=== PATIENT | female | born 1995 | race Caucasian/White ===

== ENCOUNTER 2018-09-21 22:07 | Emergency (ER) | payer OTHER, SELFPAY ==
[2018-09-21 22:09] VITALS: BP 124/83; PULSE 112; RESP 17; TEMP 37.8; O2SAT 99; BMI 22.8
[2018-09-21] MEDS: Ondansetron 4 MG/2 ML Vial IV (22:46)
[2018-09-21] MEDS: 0.9% Normal Saline 1,000 ML 999 ML IV (22:46)
[2018-09-21] MEDS: Ketorolac 30 MG/ML Syringe IV (22:48)
[2018-09-22] MEDS: DiphenhydrAMINE 50 MG/ML Syringe 25 MG IV (00:07)
[2018-09-22] MEDS: proCHLORPERazine 10 MG/2 ML Vial IV (00:08)
--- NOTE | 2018-09-22 00:38 | ED.VISSUMM ---
- ER Visit Summary Date of Service: 09/22/18 Chief Complaint: Flulike illness History of Present Illness: The patient is a 23 F who presents with a flulike illness. He became ill yesterday. She has had a fever of 101.7. She complains of muscle aches joint aches headaches and cough. She complains of nausea. No congestion rhinorrhea or sore throat. No chest pain or difficulty breathing. No sick contacts. Physical Examination: Heart rate 112 temperature 100.0 vitals otherwise normal Right tympanic membrane is normal there is a left-sided cerumen impaction Neck is supple no meningismus negative Kernig's and Brudzinski's signs sign oropharynx is clear Heart is regular rhythm slightly tachycardic Lungs are clear Abdomen soft and nontender Alert, no focal or lateralizing neurological deficits Skin warm and dry Test Results: Not indicated Emergency Department Course and Treatment: I suspect that the patient has influenza. We discussed that given that she is young and otherwise healthy Tamiflu would provide little benefit with significant side effects. I would not recommend Tamiflu in case. She was treated symptomatically with IV fluids Toradol and Zofran. On reevaluation she is still complaining of a headache. She was given Compazine and Benadryl with complete resolution of headache. She states that she feels good. She was advised on supportive care. She understands return for new or worsening symptoms. She was discharged. Treatment Plan: [] Disposition: Discharge Impression: Acute febrile illness, suspect influenza This note was generated with [employer] dictation software. It may contain incorrect words, spelling, and punctuation that were not noted in review of the chart prior to signing ED Disposition - Plan for ED Patient: Chief Complaint: Cold Sx Referrals: [facility] Doctor,Out of [Primary Care Provider] -
--- NOTE | 2018-09-22 00:41 | ED.DCSUM_ITS ---
- ER Visit Summary Date of Service: 09/22/18 Chief Complaint: Flulike illness History of Present Illness: The patient is a 23 F who presents with a flulike illness. He became ill yesterday. She has had a fever of 101.7. She complains of muscle aches joint aches headaches and cough. She complains of nausea. No congestion rhinorrhea or sore throat. No chest pain or difficulty breathing. No sick contacts. Physical Examination: Heart rate 112 temperature 100.0 vitals otherwise normal Right tympanic membrane is normal there is a left-sided cerumen impaction Neck is supple no meningismus negative Kernig's and Brudzinski's signs sign oropharynx is clear Heart is regular rhythm slightly tachycardic Lungs are clear Abdomen soft and nontender Alert, no focal or lateralizing neurological deficits Skin warm and dry Test Results: Not indicated Emergency Department Course and Treatment: I suspect that the patient has influenza. We discussed that given that she is young and otherwise healthy Tamiflu would provide little benefit with significant side effects. I would not recommend Tamiflu in case. She was treated symptomatically with IV fluids Toradol and Zofran. On reevaluation she is still complaining of a headache. She was given Compazine and Benadryl with complete resolution of headache. She states that she feels good. She was advised on supportive care. She understands return for new or worsening symptoms. She was discharged. Treatment Plan: [] Disposition: Discharge Impression: Acute febrile illness, suspect influenza This note was generated with [employer] dictation software. It may contain incorrect words, spelling, and punctuation that were not noted in review of the chart prior to signing ED Disposition - Plan for ED Patient: Chief Complaint: Cold Sx Referrals: [facility] Doctor,Out of [Primary Care Provider] -
--- NOTE | 2018-09-22 00:41 | ED.DEP ---
ED Disposition - Plan for ED Patient: Chief Complaint: Cold Sx Instructions: ED Flu Referrals: [facility] Doctor,Out of [Primary Care Provider] -
[2018-09-22 00:52] VITALS: PULSE 95; RESP 16; O2SAT 100
--- NOTE | 2018-09-22 00:53 | ED.RN ---
THIS NURSE REVIEWED D/C INSTRUCTIONS WITH PT AND MOTHER. PT VERBALIZED UNDERSTANDING OF INSTRUCTIONS. IV D/C. IV CATHETER INTACT. PT TOLERATED WELL. PT DENIES FURTHER NEEDS OR QUESTIONS AT THIS TIME. PT AMBULATES FROM ROOM ON OWN WITHOUT ASSISTANCE FROM STAFF
== END 2018-09-22 00:54 | disposition home or self-care (01) ==
LOC: ED 22:36
PROVIDERS: Emergency Provider Emergency Medicine
DX: R50.9 Fever, unspecified (principal); R51 Headache; R05 Cough; R11.0 Nausea; M79.10 Myalgia, unspecified site; H61.22 Impacted cerumen, left ear
CPT/HCPCS: 96361; 96374; 96375; 99283; J7030; A4216; J2405

== ENCOUNTER → 2019-12-23 16:44 | Outpatient (CLI) | payer OTHER, SELFPAY ==
[2019-12-23 15:58] VITALS: BMI 22.8
[2019-12-23 18:55] LABS: Chlamydia Trachomatis by PCR Negative (Negative); Neisserai gonorrhoeae by PCR Negative (Negative); Probe Check PASS; Sample Adequacy Control PASS; Specimen Processing Control PASS
== END ==
PROVIDERS: Referring Provider Obstetrics & Gynecology; Visit Provider Obstetrics & Gynecology
DX: Z34.90 Encounter for supervision of normal pregnancy, unspecified, unspecified trimester (principal)
CPT/HCPCS: 36415; 86850; 86900; 86901; 87491; 87591

== ENCOUNTER → 2019-12-26 09:53 | Outpatient (CLI) | payer OTHER, SELFPAY ==
[2019-12-26 09:48] VITALS: BMI 22.8
[2019-12-26 10:24] LABS: Absolute Neutrophil Count 8.9 X10^3/uL (2.0-7.7); Basophil# 0.06 X10^3/uL; Basophil% 0.5 % (0-1); Eosinophil# 0.08 X10^3/uL; Eosinophils% 0.7 % (0-5); Hematocrit 39.6 % (37-47); Hemoglobin 13.5 g/dL (12.0-15.0); Lymphocyte % 18.4 % (19-41); Mean Corp Hgb Conc 34.1 g/dL (32-36); Mean Corpuscular Hgb 31.3 pg (27.0-32.0); Mean Corpuscular Volume 91.7 fL (81-99); Mean Platelet Vol. 8.9 fl (6.2-12.0); Monocyte# 0.64 X10^3/uL; Monocyte% 5.4 % (0-10); NRBC Flagged by Analyzer 0 % (0-5); Neutrophil # 8.88 X10^3/uL (2.7-7.7); Neutrophil % 74.4 % (47-70); Platelet Count 315 K/mm3 (150-450); RBC Distribution Width CV 12.5 % (11.6-14.6); RBC Distribution Width SD 41.6 fl (35.1-43.9); Red Blood Count 4.32 M/mm3 (4.2-5.4); White Blood Count 11.9 K/mm3 (4.4-11.0)
[2019-12-26 11:45] LABS: HIV - WCH Non-Reactive (Nonreactive); Hepatitis B Surface Antigen Non-Reactive (Nonreactive); Hepatitis C Antibody Non-Reactive (Nonreactive); Rubella IgG 25.7 IU/mL
[2019-12-29 03:16] LABS: Rapid Plasmin Reagin (RPR) NONREACTIVE (NONREACTIVE)
== END ==
PROVIDERS: Nurse Practitioner Women's Health; Referring Provider Obstetrics & Gynecology; Visit Provider Obstetrics & Gynecology
DX: Z34.90 Encounter for supervision of normal pregnancy, unspecified, unspecified trimester (principal)
CPT/HCPCS: 36415; 85025; 86592; 86703; 86762; 86803; 86850; 87086; 87340

== ENCOUNTER → 2020-02-17 16:40 | Outpatient (CLI) | payer OTHER, SELFPAY ==
[2020-02-17 13:16] VITALS: BMI 22.8
[2020-02-17 17:13] LABS: Amphetamine Urine VISTA NEGATIVE (<1000 ng/mL); Barbiturate Urine VISTA NEGATIVE (< 200 ng/mL); Benzodiazepine Urine VISTA NEGATIVE (< 200 ng/mL); Cocaine Urine VISTA NEGATIVE (< 300 ng/mL); Ecstacy Urine VISTA NEGATIVE (< 500 ng/mL); Methadone Urine VISTA NEGATIVE (< 300 ng/mL); PCP Urine VISTA NEGATIVE (< 25 ng/mL); THC Urine VISTA NEGATIVE (< 50 ng/mL); Vista UDS pH Range 6
== END ==
PROVIDERS: Nurse Practitioner Women's Health; Referring Provider Obstetrics & Gynecology; Visit Provider Obstetrics & Gynecology
DX: Z34.90 Encounter for supervision of normal pregnancy, unspecified, unspecified trimester (principal)
CPT/HCPCS: 80307

== ENCOUNTER → 2020-05-11 08:37 | Outpatient (CLI) | payer OTHER, SELFPAY ==
[2020-04-13 09:28] VITALS: BMI 22.8
[2020-05-11 09:11] LABS: Absolute Lymphocyte Count 2.06 X10^3/uL (0.83-4.51); Absolute Neutrophil Count 7.4 X10^3/uL (2.0-7.7); Basophil# 0.06 X10^3/uL; Basophil% 0.6 % (0-1); Eosinophil# 0.08 X10^3/uL; Eosinophils% 0.8 % (0-5); Hematocrit 36.4 % (37-47); Hemoglobin 12.3 g/dL (12.0-15.0); Lymphocyte # 2.06 X10^3/ul (4.0); Lymphocyte % 19.6 % (19-41); Mean Corp Hgb Conc 33.8 g/dL (32-36); Mean Corpuscular Hgb 33.7 pg (27.0-32.0); Mean Corpuscular Volume 99.7 fL (81-99); Mean Platelet Vol. 8.9 fl (6.2-12.0); Monocyte# 0.74 X10^3/uL; Monocyte% 7.1 % (0-10); NRBC Flagged by Analyzer 0 % (0-5); Neutrophil # 7.39 X10^3/uL (2.7-7.7); Neutrophil % 70.4 % (47-70); Platelet Count 199 K/mm3 (150-450); RBC Distribution Width CV 12.7 % (11.6-14.6); RBC Distribution Width SD 46.2 fl (35.1-43.9); Red Blood Count 3.65 M/mm3 (4.2-5.4); White Blood Count 10.5 K/mm3 (4.4-11.0)
[2020-05-11 09:26] LABS: Glucose Challenge Gest 1H 50g 65 mg/dL (70-140)
== END ==
PROVIDERS: Referring Provider Obstetrics & Gynecology; Visit Provider Obstetrics & Gynecology
DX: Z34.92 Encounter for supervision of normal pregnancy, unspecified, second trimester (principal); Z3A.26 26 weeks gestation of pregnancy
CPT/HCPCS: 36415; 82950; 85025

== ENCOUNTER → 2020-06-21 08:08 | Outpatient (CLI) | payer OTHER, SELFPAY ==
[2020-06-07 10:07] VITALS: BMI 22.8
--- NOTE | 2020-06-21 08:10 | US_ITS ---
STUDY: SECOND AND THIRD TRIMESTER OBSTETRICAL ULTRASOUND REASON FOR EXAM: Female, 25 years old GROWTH LMP: Unknown. TECHNIQUE: Transabdominal TECHNICAL QUALITY: Adequate. PRIOR ULTRASOUND: None. FINDINGS: There is a single intrauterine fetus. The fetus is in a cephalic presentation. There is demonstrated cardiac activity with a heart rate of 134 bpm. There is a normal amniotic fluid volume. The largest amniotic fluid pocket measures 7.4 cm. The amniotic fluid index RADHA) is 18.1 cm. The placenta is anterior in location and is not low lying. There are Grade 2 placental changes. The cervix measures 2.9 cm in length. The bilateral adnexal regions are normal. BIOMETRY: BPD: 9.0 cm: 36 weeks, 6 days HC: 32.9 cm: 35 weeks, 6 days AC: 31.8 cm: 35 weeks, 5 days FL: 6.8 cm: 35 weeks, 0 days age by current US: 35 weeks, 6 days. BERNA by current US: 07/20/2020. Estimated weight: 2726 grams, +/- 398 grams, 51 %. Age by LMP: 35 weeks, 4 days. BERNA by LMP: 07/22/2020. Detailed anatomy study not performed but there is evidence of a nuchal cord. US/OB Limited With Biometrics IMPRESSION: Single live intrauterine at 35 weeks, 6 days by current ultrasound with BERNA of 07/20/2020. Heart rate of 136 bpm. There is a nuchal cord noted with one complete wrap. Electronically Signed: Fransisco Valdez MD at 11:53 EDT , Service support ,
== END ==
PROVIDERS: Referring Provider Obstetrics & Gynecology; Visit Provider Obstetrics & Gynecology
DX: Z34.00 Encounter for supervision of normal first pregnancy, unspecified trimester (principal)
CPT/HCPCS: 76816

== ENCOUNTER → 2020-06-28 11:01 | Outpatient (CLI) | payer OTHER, SELFPAY ==
[2020-06-28 10:06] VITALS: BMI 22.8
== END ==
PROVIDERS: Referring Provider Obstetrics & Gynecology; Visit Provider Obstetrics & Gynecology
DX: Z34.90 Encounter for supervision of normal pregnancy, unspecified, unspecified trimester (principal)
CPT/HCPCS: 87081

== ENCOUNTER → 2020-07-15 10:07 | Outpatient (CLI) | payer OTHER, SELFPAY ==
[2020-07-12 10:08] VITALS: BMI 22.8
== END ==
PROVIDERS: Referring Provider Obstetrics & Gynecology; Visit Provider Obstetrics & Gynecology
DX: Z11.59 Encounter for screening for other viral diseases (principal)
CPT/HCPCS: 87635; 94799; C9803; U0003

== ENCOUNTER 2020-07-19 02:37 | Inpatient (IN) | payer OTHER, SELFPAY ==
[2020-07-12 10:08] VITALS: BMI 22.8
[2020-07-19] VITALS (36 sets, daily range): BP systolic 93–123; BP diastolic 55–76; PULSE 71–122; RESP 14–16; TEMP 36–36.6; O2SAT 94–99; BMI 25.4
[2020-07-19] MEDS: Lactated Ringers 1,000 ML 50 ML IV (03:00)
[2020-07-19] MEDS: Lactated Ringers 500 ML 999 ML IV ×3 (03:05→06:25)
[2020-07-19 03:11] LABS: Absolute Lymphocyte Count 2.32 X10^3/uL (0.83-4.51); Absolute Neutrophil Count 11.2 X10^3/uL (2.0-7.7); Basophil# 0.08 X10^3/uL; Basophil% 0.5 % (0-1); Eosinophil# 0.19 X10^3/uL; Eosinophils% 1.3 % (0-5); Hematocrit 40.3 % (37-47); Hemoglobin 13.9 g/dL (12.0-15.0); Lymphocyte # 2.32 X10^3/ul (4.0); Lymphocyte % 15.3 % (19-41); Mean Corp Hgb Conc 34.5 g/dL (32-36); Mean Corpuscular Hgb 33.9 pg (27.0-32.0); Mean Corpuscular Volume 98.3 fL (81-99); Mean Platelet Vol. 9.1 fl (6.2-12.0); Monocyte# 1.09 X10^3/uL; Monocyte% 7.2 % (0-10); NRBC Flagged by Analyzer 0 % (0-5); Neutrophil # 11.22 X10^3/uL (2.7-7.7); Neutrophil % 74.1 % (47-70); Platelet Count 198 K/mm3 (150-450); RBC Distribution Width CV 12.4 % (11.6-14.6); RBC Distribution Width SD 44.5 fl (35.1-43.9); White Blood Count 15.1 K/mm3 (4.4-11.0)
[2020-07-19] MEDS: fentaNYL-bupivacaine (epidural) 100 ML BAG EPIDURAL (04:02)
--- NOTE | 2020-07-19 07:57 | PCM.HP.OB ---
- Problem List (1) Active labor at term Status: Acute (2) Synechia, anterior Status: Acute Qualifiers: Comment: attached at both ends, fetus freely moving. No vascularity. 36 week us normal (3) Supervision of normal first Status: Acute Qualifiers: Comment: PRR BERNA 07/22/20 gender surprise Franklyn (4) Status: Acute Qualifiers: Comment: Declines genetic, carrier, and ntd screening. anatomy reviewed. COVID negative History Date of Admission: 07/19/20 Final BERNA: 07/22/20 Gestational age: 39 Weeks and 4 Days History of this : This is a 25 year-old, G 1P0 at 39 weeks gestational age presents in active labor. Surgical History: Surgical History (Last Reviewed 07/12/20 @ 10:08 by Disha Priest) S/P ACL surgery Z98.890 Allergies sulfamethoxazole [From Bactrim] Adverse Reaction (Verified 07/12/20 10:07) Nausea/Vom/Diarrhea trimethoprim [From Bactrim] Adverse Reaction (Verified 07/12/20 10:07) Nausea/Vom/Diarrhea Home Medications: Home Medications vitamin#30 30 mg iron-10 mg iron-folic acid 1 mg-omg3 capsule cap PO 12/23/19 famotidine 20 mg tablet 20 mg PO DAILY #30 tab 05/11/20 Smoking Status: Never smoker Number of Fetus(es): 1 NST - FHR Rate Baby A Baseline: 130 Variability:: Moderate Accelerations:: 15 x 15 Decelerations:: None NST Reactive:: Yes FHR Category:: Category I Uterine Activity:: regular History Past Pregnancies: Past Pregnancies Delivery Date Name GA/ Weeks Outcome Route Wt Infant Sex Labor Length Anesthesia Delivery Location Provider FOB Labs: Mom's Problem List Problem Status Onset Code Active labor at term Acute Mom's Labs & Results 07/19/20 07/19/20 03:00 03:00 WBC 15.1 H RBC 4.10 L Hgb 13.9 Hct 40.3 MCV 98.3 MCH 33.9 H MCHC 34.5 RDW Std Deviation 44.5 H RDW Coeff of Luma 12.4 Plt Count 198 MPV 9.1 Immature Gran % (Auto) 1.600 H Neut % (Auto) 74.1 H Lymph % (Auto) 15.3 L [place] % (Auto) 7.2 Eos % (Auto) 1.3 Baso % (Auto) 0.5 Absolute Neuts (auto) 11.2 H Absolute Lymphs (auto) 2.32 Nucleated RBC % 0 Blood Type A POSITIVE Antibody Screen NEGATIVE Course Did the patient receive Yes care? Labs Blood Type: A RH: POSITIVE RPR/VDRL/Syphilis Nonreactive Rubella status Immune HbSAg Negative Date Done: 12/26/19 Chlamydia Negative Gonorrhea Negative HIV/AIDS Non-Reactive Group B Strep: Negative Current Obstetrical History Gestational Diabetes No Incompetent Cervix No Infertility No IUGR No Macrosomia No Hypertension/Pre-eclampsia No Placenta Previa/Abruption No PTL/PROM No Uterine anomaly No Oligohydramnios No Polyhydramnios No Multiple gestation No Past Medical History Asthma No Diabetes No Hypertension No Heart disease No Mitral valve prolapse No Neurologic/Seizure disorder/ No Migraines Kidney disease No Liver disease No Varicosities No Clotting disorders/Hx of DVT No Thyroid Dysfunction No Other medical diseases No Psychiatric disorders No Major trauma No Abnormal PAP smear No Sleep apnea No Mammogram in the last 2 years No Social History Marital Status: Alleged father Franklyn Hx Smoking No Smoking Status Never smoker Expected Delivery Method: Spontaneous Vaginal Review of Systems Constitutional: Denies: Fever, Malaise Eyes: Denies: Blurred vision, Vision Change HEENT: Denies: Head Aches, Visual Changes Cardiovascular: Denies: Chest Pain, Palpitations Respiratory: Denies: Cough, Shortness of Breath, Wheezing Gastrointestinal: Denies: Abdominal Pain, Diarrhea, Nausea, Vomiting Genitourinary: Denies: Dysuria, Hematuria Musculoskeletal: Denies: Joint Pain, Muscle pain Skin: Denies: Lesions, Rash Neurological: Denies: Blurred vision, Focal weakness, Headaches Psychiatric: Denies: Anxiety, Depression Endocrine: Denies: Heat/ Cold Intolerance Hematologic/ Lymphatic: Denies: Easy Bruising, Easy Bleeding Physical Exam Vitals: Vital Signs Temp Pulse BP Pulse Ox 97.0 F L 122 H 100/66 95 07/19/20 07:36 07/19/20 07:20 07/19/20 07:20 07/19/20 06:08 General: Alert, Cooperative, No apparent distress HEENT: Atraumatic, Normocephalic. Negative for: Thyromegaly, Lymphadenopathy Cardiovascular: Regular rate Lungs: Normal air movement Abdomen: Soft, Non Tender, Gravid Neurological: Deep Tendon Reflexes 2+/4 and Symmetrical, Neuro grossly intact. Negative for: Clonus SCREENING TECHNICIAN: Normal external genitalia. Negative for: Vulvar lesions Estimated gestational size: Appropriate for gestational size Presentation: Cephalic Assessment/Plan All Active Problems (Last Reviewed 07/12/20 @ 10:08 by Disha Priest) Active labor at term (Acute) Synechia, anterior (Acute) Supervision of normal first (Acute) (Acute) This is a 25 year-old, at 39 weeks gestational age presents IAL. Patient presents IAL, plan expectant management for , pitocin/AROM PRN if needed. Pain management: Plans epidural. GBS negative. Management of any complications: None I have reviewed the [facility] and made any clinically relevant updates.
[2020-07-19] MEDS: Oxytocin 30 units/NS 500 ml 30 UNITS/500 ML IV.SOLN 334 UNITS IV (08:04)
[2020-07-19] MEDS: Acetaminophen 500 MG Tablet 1000 MG PO ×2 (10:38→19:49)
[2020-07-19] MEDS: Dibucaine 30 GM Tube 1 APPLIC TOPICAL (19:51)
[2020-07-19] MEDS: Naproxen 250 MG Tablet 500 MG PO (22:09)
[2020-07-20 03:36] VITALS: BP 104/65; PULSE 77; RESP 18; TEMP 36.2
[2020-07-20] MEDS: Acetaminophen 500 MG Tablet 1000 MG PO ×2 (04:31→14:52)
--- NOTE | 2020-07-20 05:47 | OP.PCM_ITS ---
Problem List (1) Active labor at term Status: Acute (2) Synechia, anterior Status: Acute Qualifiers: Comment: attached at both ends, fetus freely moving. No vascularity. 36 week us normal (3) Supervision of normal first Status: Acute Qualifiers: Comment: PRR BERNA 07/22/20 gender surprise Franklyn (4) Status: Acute Qualifiers: Comment: Declines genetic, carrier, and ntd screening. anatomy reviewed. COVID negative Vaginal Delivery Maternal Presentation: Active Labor 25-year-old G1, P0 at 39 weeks presents in active labor Amniotic Membrane Rupture Type: Artificial Amniotic Fluid Description: Clear Final BERNA: 07/22/20 Gestational age: 39 Weeks and 5 Days Date of Procedure: 07/19/20 Pre-Operative Diagnosis: ial Post-Operative Diagnosis: same Surgery/ Procedure Performed: Spontaneous Vaginal Delivery Type of Anesthesia: Epidural Description of Procedure: Patient began pushing and delivered the head in the [WINSOME] presentation. The head was delivered atraumatically and a tight nuchal cord and looser loop were noted. The anterior and posterior shoulders delivered without complication spontaneously and only infant was at the level on the umbilicus the cord was clamped and cut followed by the rest of the infant delivering and the was placed on the maternal abdomen. Delayed cord clamping was employed for approximately 60 seconds. Cord was clamped and cut and gentle traction was applied to the cord and the placenta delivered spontaneously immediately following it was noted to be intact with three-vessel cord. The perineum and vagina were inspected and noted to have a first-degree vaginal laceration and a first-degree perineal laceration that was repaired in the usual fashion with 3-0 Vicryl repeat. EBL was 300. Patient and infant tolerated delivery well. Presentation: WINSOME Placental Delivery Description: Spontaneous Placenta Disposition: [facility] Cord Entanglement: Around neck x 2, loose Estimated Blood Loss: 300 A gender: Male Episiotomy Description: None Laceration: Perineal Extension/lac, Vaginal Extension/lac, 1st degree Medications given after delivery: IV Pitocin Complications: None [facility] Codes - Urinary/Genital Urinary/Genital CPT Codes: 82183 Delivery [facility]
--- NOTE | 2020-07-20 07:06 | PCM.PN.OB ---
Patient Problems: Active and Suspected Problems (Last Reviewed 07/12/20 @ 10:08 by Disha Priest) Active labor at term (Acute) Subjective: Patient doing well without complaints. Tolerating PO. Ambulating and voiding without difficulty. passing gas.feeding without difficulty. Denies chest pain, shortness of breath, calf pain/swelling, fevers, chills, lightheadedness. - Physical Exam Vitals/I&O's: Vital Signs Temp Pulse Resp BP Pulse Ox 97.1 F L 77 18 104/65 99 07/20/20 03:36 07/20/20 03:36 07/20/20 03:36 07/20/20 03:36 07/19/20 20:01 Oxygen Delivery Method Room Air Weight: 162 lb 3.2 oz Body Mass Index (BMI) 25.4 Intake and Output for Last 24 Hours 07/18/20 07/19/20 07/20/20 23:59 23:59 23:59 Intake Total 2714.17 / 2714.17 Output Total 2200 / 2200 Balance 514.17 / 514.17 General: Alert, Oriented x3 Current Medications Acetaminophen (Tylenol) 1,000 mg PO Q8H PRN PRN PRN Reason: Pain Score 1-310 Last Admin: 07/20/20 04:31 Dose: 1,000 mg Documented by: Bisacodyl (Dulcolax) 10 mg RECTAL UD PRN PRN Reason: If no BM Dibucaine (Dibucaine) 1 applic TOPICAL TID PRN PRN; Protocol PRN Reason: Discomfort Last Admin: 07/19/20 19:51 Dose: 1 applicatio Documented by: Hydrocortisone (Hytone) 1 applic TOPICAL TID PRN PRN; Protocol PRN Reason: Discomfort Methylergonovine Maleate (Methergine) 0.2 mg IM X1 PRN PRN Reason: Excess bleeding/uterine atony Naproxen (Naprosyn) 500 mg PO Q8H PRN PRN PRN Reason: Pain Score 1-3/10 Last Admin: 07/19/20 22:09 Dose: 500 mg Documented by: Ondansetron HCl (Zofran) 4 mg IV Q4H PRN PRN PRN Reason: Nausea Oxycodone HCl (Oxyir) 5 - 10 mg PO Q4H PRN PRN PRN Reason: Pain Score 4-10/10 Senna/Docusate Sodium (Senokot-S, Dana-Colace) 1 - 2 tablet PO DAILY PRN PRN PRN Reason: Constipation Simethicone (Mylicon) 80 mg PO PCHS PRN PRN Reason: Indigestion/Stomach pain Sodium Chloride () 5 - 15 ml IV UD PRN PRN Reason: SALINE FLUSH Medical Necessity - Tobacco Use Smoking Status: Never smoker Assessment/Plan All Active Problems (Last Reviewed 07/12/20 @ 10:08 by Disha Priest) Active labor at term (Acute) Synechia, anterior (Acute) Supervision of normal first (Acute) (Acute) s/p PPD # 1 1. routine post delivery care 2. breast feeding- support given 3. rh positive 4. rubella immune
--- NOTE | 2020-07-20 07:07 | DCINST_ITS ---
Discharge Diet: No Restrictions Discharge Activity: Return to Normal Activity, May not drive while taking narcotic pain medications., May Shower May resume sexual activity in: 4-6 weeks Call your doctor if your incision/area has: Continuous Slow Oozing, Sudden Increased Bleeding, Increased Pain/ Swelling, Increased Redness, Foul Smelling Discharge Additional Instructions: If you experience any of the following, contact your healthcare provider. * Bleeding that soaks a pad every hour for 2 hours * Fever 100.4 or higher * Unrelieved incision or abdominal pain * Swelling, redness, discharge or bleeding from your incision or episiotomy site * Your incision begins to separate * Problems urinating (including inability to urinate or burning while urinating). * Visual changes * Severe headache * Flu-like symptoms * Pain or redness in one of both of your breasts * Pain, warmth, tenderness or swelling in your legs, especially the calf area * Frequent nausea and vomiting * Symptoms of depression or anxiety If you experience any of the following, call 911 or go to the nearest Emergency Room. * Chest pain * Problems breathing * Seizure activity * Partial or complete paralysis of a body part, slurred speech, weakness or drooping of the face, or a sudden inability to walk or hold your balance Allergies/Adverse Reactions: Allergies sulfamethoxazole [From Bactrim] Adverse Reaction (Verified 07/12/20 10:07) Nausea/Vom/Diarrhea trimethoprim [From Bactrim] Adverse Reaction (Verified 07/12/20 10:07) Nausea/Vom/Diarrhea Medications to take at Discharge vitamin#30 30 mg iron-10 mg iron-folic acid 1 mg-omg3 capsule cap PO 12/23/19 famotidine 20 mg tablet 20 mg PO DAILY #30 tab 05/11/20 Please Follow Up With: Leonor Garcia MD - [phone] When: Call to make an appointment with your doctor in 6 weeks. If you had elevated Blood pressure or 4th degree laceration you will need to be seen in 2 weeks. Primary Care Physician: Care Physician,No Primary [Primary Care Provider] - Test Results: Test results from this visit will be discussed in further detail at your follow- up appointment, if applicable.
[2020-07-20] MEDS: Naproxen 250 MG Tablet 500 MG PO (08:21)
[2020-07-20 10:00] VITALS: BP 111/64; PULSE 60; RESP 16; TEMP 36.8
[2020-07-20 14:00] VITALS: RESP 16; TEMP 36.5
[2020-07-20] MEDS: Senna/Docusate Sodium 1 Tablet PO (15:44)
== END 2020-07-20 17:10 | disposition home or self-care (01) | DRG 807 ==
LOC: WPOUT 02:41 → WP 02:41 → WPOUT 02:50 → WP 02:50
PROVIDERS: Admitting Provider Obstetrics & Gynecology; Referring Provider Obstetrics & Gynecology; Visit Provider Obstetrics & Gynecology
DX: O70.0 First degree perineal laceration during delivery (principal); Z37.0 Single live birth; O69.1XX0 Labor and delivery complicated by cord around neck, with compression, not applicable or unspecified; Z3A.39 39 weeks gestation of pregnancy
CPT/HCPCS: 59025; 59050; 85025; 86850; 86900; 86901; 99218; J7120; G0378

== ENCOUNTER → 2020-09-07 16:06 | Outpatient (CLI) | payer OTHER, SELFPAY ==
[2020-09-07 08:53] VITALS: BMI 25.4
[2020-09-20 15:06] LABS: HPV Reflexed? NOT INDICATED
== END ==
PROVIDERS: Referring Provider Obstetrics & Gynecology; Visit Provider Obstetrics & Gynecology
DX: Z12.4 Encounter for screening for malignant neoplasm of cervix (principal)
CPT/HCPCS: 88175; G0145

== ENCOUNTER → 2021-09-09 15:04 | Outpatient (CLI) | payer OTHER, SELFPAY ==
[2021-09-12 16:29] LABS: HPV Reflexed? NOT INDICATED
== END ==
PROVIDERS: Referring Provider Obstetrics & Gynecology; Visit Provider Obstetrics & Gynecology
DX: Z12.4 Encounter for screening for malignant neoplasm of cervix (principal)
CPT/HCPCS: 88175; G0145

== ENCOUNTER 2022-01-16 11:08 | Outpatient (CLI) | payer OTHER, SELFPAY ==
[2022-01-16 11:26] LABS: Absolute Lymphocyte Count 1.89 X10^3/uL (0.83-4.51); Absolute Neutrophil Count 9.5 X10^3/uL (2.0-7.7); Basophil# 0.06 X10^3/uL; Basophil% 0.5 % (0-1); Eosinophil# 0.07 X10^3/uL; Eosinophils% 0.6 % (0-5); Hematocrit 38.2 % (37-47); Hemoglobin 13.3 g/dL (12.0-15.0); Lymphocyte # 1.89 X10^3/ul (0.83-4.51); Lymphocyte % 15.5 % (19-41); Mean Corp Hgb Conc 34.8 g/dL (32-36); Mean Platelet Vol. 8.8 fl (6.2-12.0); Monocyte% 4.9 % (0-10); NRBC Flagged by Analyzer 0 % (0-5); Neutrophil # 9.49 X10^3/uL (2.7-7.7); Neutrophil % 77.8 % (47-70); Platelet Count 271 K/mm3 (150-450); RBC Distribution Width CV 12.9 % (11.6-14.6); RBC Distribution Width SD 43.1 fl (35.1-43.9); Red Blood Count 4.15 M/mm3 (4.2-5.4); White Blood Count 12.2 K/mm3 (4.4-11.0)
[2022-01-16 12:23] LABS: HIV - WCH Non-Reactive (Nonreactive); Hepatitis B Surface Antigen Non-Reactive (Nonreactive); Hepatitis C Antibody Non-Reactive (Nonreactive); Rubella IgG Reactive (Nonreactive); Syphilis Antibodies Non-reactive
== END 2022-01-16 23:59 | disposition home or self-care (01) ==
LOC: PAVLAB 11:09
PROVIDERS: Referring Provider Obstetrics & Gynecology; Visit Provider Obstetrics & Gynecology
DX: Z34.90 Encounter for supervision of normal pregnancy, unspecified, unspecified trimester (principal)
CPT/HCPCS: 36415; 85025; 86703; 86762; 86780; 86803; 86850; 86900; 86901; 87340

== ENCOUNTER → 2022-04-09 | Outpatient (CLI) | payer OTHER, SELFPAY ==
[2022-04-09 09:27] LABS: Absolute Neutrophil Count 7.7 X10^3/uL (2.0-7.7); Basophil# 0.05 X10^3/uL; Basophil% 0.5 % (0-1); Eosinophil# 0.08 X10^3/uL; Eosinophils% 0.8 % (0-5); Hematocrit 38.4 % (37-47); Hemoglobin 13.2 g/dL (12.0-15.0); Mean Corp Hgb Conc 34.4 g/dL (32-36); Mean Corpuscular Hgb 33.4 pg (27.0-32.0); Mean Corpuscular Volume 97.2 fL (81-99); Mean Platelet Vol. 8.7 fl (6.2-12.0); Monocyte# 0.61 X10^3/uL; Monocyte% 5.8 % (0-10); NRBC Flagged by Analyzer 0 % (0-5); Neutrophil # 7.66 X10^3/uL (2.7-7.7); Neutrophil % 72.6 % (47-70); Platelet Count 217 K/mm3 (150-450); RBC Distribution Width CV 12.3 % (11.6-14.6); Red Blood Count 3.95 M/mm3 (4.2-5.4); White Blood Count 10.5 K/mm3 (4.4-11.0)
[2022-04-09 09:34] LABS: Glucose Challenge Gest 1H 50g 75 mg/dL (70-140)
== END | disposition home or self-care (01) ==
LOC: PAVLAB 08:52
PROVIDERS: Referring Provider Obstetrics & Gynecology; Visit Provider Obstetrics & Gynecology
DX: Z34.80 Encounter for supervision of other normal pregnancy, unspecified trimester (principal)
CPT/HCPCS: 36415; 82950; 85025

== ENCOUNTER → 2022-07-03 | Outpatient (CLI) | payer OTHER, SELFPAY | END | disposition home or self-care (01) | LOC: LABSPEC 10:34 | PROVIDERS: Visit Provider Obstetrics & Gynecology | DX: Z34.80 Encounter for supervision of other normal pregnancy, unspecified trimester (principal) | CPT/HCPCS: 87077; 87081; 87186 ==

== ENCOUNTER 2022-07-31 20:48 | Inpatient (IN) | payer OTHER, SELFPAY ==
[2022-07-31] VITALS (9 sets, daily range): BP systolic 117–131; BP diastolic 76–81; PULSE 96–141; TEMP 36.4–36.7; O2SAT 79–96; BMI 25.0
[2022-07-31] MEDS: Lactated Ringers 1,000 ML 50 ML IV (20:50)
[2022-07-31 21:18] LABS: Absolute Lymphocyte Count 3.33 X10^3/uL (0.83-4.51); Absolute Neutrophil Count 14.8 X10^3/uL (2.0-7.7); Basophil# 0.07 X10^3/uL; Basophil% 0.3 % (0-1); Eosinophil# 0.13 X10^3/uL; Eosinophils% 0.6 % (0-5); Hematocrit 43.1 % (37-47); Hemoglobin 14.7 g/dL (12.0-15.0); Lymphocyte # 3.33 X10^3/ul (0.83-4.51); Lymphocyte % 16.6 % (19-41); Mean Corp Hgb Conc 34.1 g/dL (32-36); Mean Corpuscular Volume 96.9 fL (81-99); Mean Platelet Vol. 9.5 fl (6.2-12.0); Monocyte# 1.52 X10^3/uL; Monocyte% 7.6 % (0-10); NRBC Flagged by Analyzer 0 % (0-5); Neutrophil # 14.82 X10^3/uL (2.7-7.7); Neutrophil % 73.8 % (47-70); POSITIVE DIFFERENTIAL YES; Platelet Count 270 K/mm3 (150-450); RBC Distribution Width CV 12.1 % (11.6-14.6); Red Blood Count 4.45 M/mm3 (4.2-5.4); White Blood Count 20.1 K/mm3 (4.4-11.0)
[2022-07-31] MEDS: LACTATED RINGERS 500 ML 999 ML IV (21:26)
[2022-07-31 21:32] LABS: Differential Indicated SCAN CRITERIA MET
--- NOTE | 2022-07-31 21:48 | HP.PCM.OB_ITS ---
HPI - General General Date of Admission: 07/31/22 HPI Narrative RASHIDA WELLINGTON, is a 27 F who presents IAL 5 cm dilated and SROM clear fluid Maternal Data Information BERNA Calculator Estimated Delivery Date Method Current WG Current Estimate 07/26/22 LMP (Certain) 40w 5d Other Estimates 07/27/22 Ultrasound #1 40w 4d PFSH PFSH Medical History Anxiety and depression LGSIL (low grade squamous intraepithelial dysplasia) Low-lying placenta in second trimester Positive GBS test Home Medications vitamin#30 30 mg iron-10 mg iron-folic acid 1 mg-omg3 capsule cap PO 12/23/19 [History Last Taken Unknown] famotidine 20 mg tablet (Pepcid) 20 mg PO DAILY #30 tabs 03/28/22 [Rx Last Taken Unknown] Allergy/AdvReac Type Severity Reaction Status Date / Time sulfamethoxazole AdvReac Nausea/Vom/ Verified 07/30/22 09:10 [From Bactrim] Diarrhea trimethoprim [From Bactrim] AdvReac Nausea/Vom/ Verified 07/30/22 09:10 Diarrhea Surgical History S/P ACL surgery Social History Smoking Status: Never smoker alcohol intake: never substance use type: does not use caffeine: Yes what type of physical activity do you participate in: walking seatbelt use: always do you feel safe at home: Yes additional social history: Franklyn- [employer] [place] Patient is a [facility] History 2 Elective abortions Hx Para 1 Spontaneous abortions Hx # Term Pregnancies 1 Ectopic pregnancies Hx # Pregnancies Multiple births # of living children 1 Past Pregnancies Del. Date Name GA/Weeks Outcome Route Bth Weight Infant Gen Labor Lgth Anesthesia Del Locatn Provider FOB 07/20/20 Jose 39 live - full term 7lb 11oz Male 6 ho urs epidural [facility] Jose Estes Visit Details Expected Delivery Route/Plan Labor Preferences- CB/BF classes: no labor support person: Franklyn labor intervention preferences: minimal preferred, IA, okay with touch open to all. prefers no pitocin after delivery. pain management options preferred: epidural if needed, would like limited intervention, ask for hydrotherapy cut cord/dad catch: yes : yes PP control planned: discussed discussed possible routes of delivery and associated risks: special requests: [] Plans Covid status: non immune. pfizer vaccine. discussed booster Flu vaccine: given august Tdap vaccine: given Rhogam: na LARC form signed: declined movement and labor precautions reviewed. Problem list reviewed and updated with the most current plan of care details and appropriate orders placed. Relevant counseling for the gestational age provided. Continue routine care and follow up unless otherwise noted in visit notes/problem list details OB Flowsheet Initial Weight: 125 lb Date -?-?-?-?-?--?-?-?-?-?-?-?- EGA Weight BP Urine Prot -?-?-?-?-?-?-?-?-?-?-?-?- Glucose FHR FuHt Pres Dilation -?-?-?-?-?-?-?-?-?-?-?-?- Effaced St Visit Note 12/19/21 -?-?-?-?-?-?-?-?-?-?-?-?- 8w 5d 126 lb (+16 oz) 102/80 -?-?-?-?-?-?-?-?-?-?-?-?- 160 -?-?-?-?-?-?-?-?-?-?-?-?- SM- CRL 2 cm con s with LMP 01/16/22 -?-?-?-?-?-?-?-?-?-?-?-?- 12w 5d 130 lb 6 oz (+5 lb 6 oz) 120/82 Negative -?-?-?-?-?-?-?-?-?-?-?-?- Negative 150 -?-?-?-?-?-?-?-?-?-?-?-?- SM- no vb crampi ng 02/14/22 -?-?-?-?-?-?-?-?-?-?-?-?- 16w 6d 136 lb (+11 lb) 120/84 Negative -?-?-?-?-?-?-?-?-?-?-?-?- Negative 145 17 -?-?-?-?-?-?-?-?-?-?-?-?- SM- no vb crampi ng 03/19/22 -?-?-?-?-?-?-?-?-?-?-?-?- 21w 4d 145 lb (+20 lb) 120/80 Negative -?-?-?-?-?-?-?--?-?-?-?-?- Negative 150 21 -?-?-?-?-?-?-?-?-?-?-?-?- JV- no complaint s today. Normal anatomy ultrasound. JV- no complaints today. Nor mal anatomy ultrasound with exception of 11mm from cx edge low lying placenta. discussed avoidance of intercourse and lifting heavy objects until her next visit. also discussed controversial thoughts on this topic and pt was very accepting of different practice ideas and agrees with the more conservative approach. will repeat at 28 weeks. 04/09/22 -?-?-?-?-?-?-?-?-?-?-?-?- 24w 4d 148 lb 6 oz (+23 lb 6 oz) 118/70 Negative -?-?-?-?-?-?-?-?-?-?-?-?- Negative 136 24 -?-?-?-?-?-?-?-?-?-?-?-?- MH-No VB, LOF. G ood FM. labs today. US to recheck placenta 05/0605/01/22 -?-?-?-?-?-?-?-?-?-?-?-?- 27w 5d 153 lb 4 oz (+28 lb 4 oz) 122/81 Negative -?-?-?-?-?-?-?-?-?-?-?-?- Negative 147 29 -?-?-?-?-?-?-?-?-?-?-?-?- JV- follow up pl acenta scan to be done 05/09. no complaints today. 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 normal glucola 05/15/22 -?-?-?-?-?-?-?-?-?-?-?-?- 29w 5d 155 lb (+30 lb) 112/62 Negative -?-?-?-?-?-?-?-?-?-?-?-?- Negative 145 30 -?-?-?-?-?-?-?-?-?-?-?-?- SM- no vb lof go od fm no regular ctx tdap today 05/30/22 -?-?-?-?-?-?-?-?-?-?-?-?- 31w 6d 159 lb (+34 lb) 100/72 Negative -?-?-?-?-?-?-?-?-?-?-?-?- Negative 135 33 -?-?-?-?-?-?-?-?-?-?-?-?- SM- no vb lof go od fm no regular ctx 06/12/22 -?-?-?-?-?-?-?-?-?-?-?-?- 33w 5d 161 lb (+36 lb) 118/66 Negative -?-?-?-?-?-?-?-?-?-?-?-?- Negative 145 35 Cephalic -?-?-?-?-?-?-?-?-?-?-?-?- SM- no vb lof go od fm no regular ctx 06/26/22 -?-?-?-?-?-?-?-?-?-?-?-?- 35w 5d 161 lb (+36 lb) 124/68 Negative -?-?-?-?-?-?-?-?-?-?-?-?- Negative 140 36 Cephalic -?-?-?-?-?-?-?-?-?-?-?-?- SM- no vb lof go od fm no regular ctx 07/03/22 -?-?-?-?-?-?-?-?-?-?-?-?- 36w 5d 165 lb 4 oz (+40 lb 4 oz) 117/84 Negative -?-?-?-?-?-?-?-?-?-?-?-?- Negative 145 37 Cephalic 1 -?-?-?-?-?-?-?-?-?-?--?-?- 30 -3 JV- no com plaints today. gbs collected. labor precautions discussed. 07/11/22 -?-?-?-?-?-?-?-?-?-?-?-?- 37w 6d 163 lb (+38 lb) 100/62 Negative -?-?-?-?-?-?-?-?-?-?-?-?- Negative 145 38 Cephalic -?-?-?-?-?-?-?-?-?-?-?-?- SM- no vb lof go od fm no regular ctx 07/17/22 -?-?-?-?-?-?-?-?-?-?-?-?- 38w 5d 164 lb (+39 lb) 120/88 Negative -?-?-?-?-?-?-?-?-?-?-?-?- Negative 140 40 Cephalic -?-?-?-?-?-?-?-?-?-?-?-?- SM- no vb lof go od fm n oregular ctx 07/23/22 -?-?-?-?-?-?-?-?-?-?-?-?- 39w 4d 166 lb (+41 lb) 130/82 Negative -?-?-?-?-?-?-?-?-?-?-?-?- Negative 135 39 Cephalic 1 .5 -?-?-?-?-?-?-?-?-?-?-?-?- 70 -3 JV- no lof , vaginal bleeding, or dec fm. she does not want to be scheduled for IOL for 41 weeks yet. She states that this will make her too nervous. 07/30/22 -?-?-?-?-?-?-?-?-?-?-?-?- 40w 4d 165 lb 8 oz (+40 lb 8 oz) 133/85 Negative -?-?-?-?-?-?-?-?-?-?-?-?- Negative 140 40 Cephalic 2 -?-?-?-?-?-?-?-?-?-?-?-?- 70 -2 JV- no lof , vaginal bleeding, or dec fm. will plan for RADHA and nst thursday and then 4 days after that and plan for 42 week IOL per patient request. 07/31/22 -?-?-?-?-?-?-?-?-?-?-?-?- 40w 5d 164 lb 4 oz (+39 lb 4 oz) 131/79 -?-?-?-?-?-?-?-?-?-?-?-?- -?-?-?-?-?-?-?-?-?-?-?-?- NST FHR Rate Baby A Baseline: 140 Variability:: Moderate Accelerations:: 15 x 15 Decelerations:: Variable (resolved with IVFs and position changes) NST Reactive:: Yes FHR Category:: Category I Uterine Activity:: q3 ROS Constitutional Constitutional: Reports systems reviewed and no addt'l complaints, except as documented ENT HEENT: Reports systems reviewed and no addt'l complaints, except as documented Cardiovascular Cardiovascular: Reports systems reviewed and no addt'l complaints, except as documented Respiratory/Chest Respiratory/Chest: Reports systems reviewed and no addt'l complaints, except as documented Gastrointestinal Gastrointestinal: Reports systems reviewed and no addt'l complaints, except as documented and nausea; Denies abdominal pain Genitourinary Genitourinary: Reports systems reviewed and no addt'l complaints, except as documented, contractions Details: present and frequency (regular ) and mo vement Details: present Musculoskeletal Musculoskeletal: Reports systems reviewed and no addt'l complaints, except as documented Integumentary Integumentary: Reports as per HPI Neurologic Neurologic: Reports systems reviewed and no addt'l complaints, except as documented Endocrine Endocrinology: Reports systems reviewed and no addt'l complaints, except as documented Vital Signs Vital Signs Vital Signs: 07/31/22 21:03 07/31/22 21:03 07/31/22 21:04 Pulse Rate 126 H 141 H Blood Pressure 131/79 H BP Systolic 131 BP Diastolic 79 Pulse Ox 07/31/22 21:04 Pulse Rate Blood Pressure BP Systolic BP Diastolic Pulse Ox 79 Weight Weight: 164 lb 4 oz Body Mass Index (BMI) 25.0 Physical Exam Const alert, oriented x3 and healthy appearing Constitutional Narrative: uncomfortable with contractions HEENT normocephalic and moist oral mucous membranes Head and Scalp: atraumatic Neck full ROM, no lymphadenopathy, supple and thyroid normal General: trachea midline Thyroid: thyroid normal Lymph Lymphatic: no lymphadenopathy noted Chest inspection of chest normal Resp normal respiratory effort Cardio regular rate GI normal to inspection, nondistended, normoactive bowel sounds, soft to palpation and non-tender Inspection: gravid external exam normal Bimanual Exam - Vag & Uterus: uterus non-tender Manual OB Exam: estimated gestational size appropriate, presentation cephalic, dilated, effaced and station Extremity normal to inspection General Extremity: Negative for edema Skin no rashes or lesions noted Neuro deep tendon reflexes 2+ bilaterally Motor Exam: strength 5/5 throughout and clonus absent Psych mental status grossly normal Labs Labs Labs: Blood Type A POSITIVE Antibody Screen NEGATIVE Hct 43.1 % (37-47) Hgb 14.7 g/dL (12.0-15.0) Obstetrics US Syphilis Total Ab Non-reactive Rubella IgG Antibody Reactive (Nonreactive) Hep Bs Antigen Non-Reactive (Nonreactive) Chlamydia DNA (GIDEON) Negative (Negative) Neisseria gonorrhoeae DNA (GIDEON) Negative (Negative) HIV 1&2 Antibody Non-Reactive (Nonreactive) Glucose 1 Hr 50 gm 75 mg/dL (70-140) Rhogam given: No Assessment & Plan (1) Positive GBS test: COMMENT: PCN in labor (2) Supervision of other normal : COMMENT: PRR BERNA: 07/26/22 PC: Jose Spouse: Franklyn (3) : QUALIFIERS: Weeks of gestation: 40 weeks Qualified Code(s): Z3A.40 - 40 weeks gestation of COMMENT: 32 wk re-evaluate kidneys 9mm, reevaluate in 3-4 wks, declines genetic and carrier (4) Anxiety and depression: COMMENT: h/o PPA no meds preivously, encouraged counseling.stable (5) LGSIL (low grade squamous intraepithelial dysplasia): COMMENT: h/o. nl 09/19. repeat PP (6) Active labor at term:
[2022-07-31 21:53] LABS: Anisocytosis RARE; Macrocytosis RARE; Platelet Estimate ADEQUATE (ADEQ); Red Cell Morphology N CHROM NORMAL (NORM C&C)
--- NOTE | 2022-07-31 23:34 | EX.PCM.OBRPT ---
Assessment & Plan (1) Active labor at term: (2) Positive GBS test: COMMENT: PCN in labor (3) Supervision of other normal : COMMENT: PRR BERNA: 07/26/22 PC: Jose Spouse: Franklyn (4) : QUALIFIERS: Weeks of gestation: 40 weeks Qualified Code(s): Z3A.40 - 40 weeks gestation of COMMENT: 32 wk re-evaluate kidneys 9mm, reevaluate in 3-4 wks, declines genetic and carrier (5) Anxiety and depression: COMMENT: h/o PPA no meds preivously, encouraged counseling.stable (6) LGSIL (low grade squamous intraepithelial dysplasia): COMMENT: h/o. nl 09/19. repeat PP (7) Vaginal delivery: COMMENT: SM 41 girl IAL Maternal Data Information BERNA Calculator Estimated Delivery Date Method Current WG Current Estimate 07/26/22 LMP (Certain) 40w 5d Other Estimates 07/27/22 Ultrasound #1 40w 4d Vaginal Delivery Operative Information Date of Procedure: 07/31/22 Pre-Operative Diagnosis: IAL Post-Operative Diagnosis: same Surgery / Procedure Performed: Spontaneous Vaginal Delivery Type of Anesthesia: Local with 1% Lidocaine Special Medications: none Estimated Blood Loss: 200 Fluids Replaced: crystalloid Findings Description of Procedure: Patient began pushing and delivered the head in the WINSOME presentation. The head was delivered atraumatically . The anterior and posterior shoulders delivered without complication followed by the rest of the and the infant was placed on the maternal abdomen. Delayed cord clamping was employed for approximately 60 seconds. Cord was clamped and cut and gentle traction was applied to the cord and the placenta delivered spontaneously immediately following it was noted to be intact with three-vessel cord. The perineum and vagina were inspected and noted to have a left labial laceration repeaired with 3-0 rapide injected with lidocaine. EBL was 200. Patient and tolerated delivery well. Presentation: WINSOME Amniotic Membrane Rupture Type: Artificial Amniotic Fluid Description: Clear Placental Delivery Description: Spontaneous Placenta Disposition: [facility] Cord Vessel Description: 3 Vessels Cord Entanglement: None Infant A Gender: Female Delayed Cord Clamping: Yes Post Vaginal Delivery Medications Given After Delivery: IV Pitocin Episiotomy Description: None Laceration: None Complication Complications: None Procedures Urinary/Genital [id number]: [id number] Vaginal Delivery [facility]
--- NOTE | 2022-07-31 23:38 | DCINST_ITS ---
Discharge Instructions Diet Discharge Diet: No restrictions Activity Discharge Activity: Return to Normal Activity, May Drive, May Shower and May Take a Tub Bath (in 4 weeks) May resume sexual activity in: 6-8 weeks (after seen by OB provider) Weight Bearing Status: Full weight bearing Lifting Restrictions: none Dressing / Incision Call your doctor if you observe: Fever of 101 or Higher, Inability to urinate, Using more than 1 pad per hour (for more than 2 hours in a row or more), Shortness of breath, Dizziness, Chest pain and - (headache not controlled with tylenol, change in vision) Follow Up Care When: in 6 weeks for visit, call the office to make the appointment. If you had elevated blood pressures call the office to be seen within 1 week. Test Results: Test results from this visit will be discussed in further detail at your follow- up appointment, if applicable. Discharge Plan Admission Admit Date/Time: 07/31/22 20:48 Attending Provider: Leonor Garcia Primary Care Provider: Care Physician,Jeannine Primary Discharge Orders/Prescriptions Prescriptions: No Action vitamin#30 30 mg iron-10 mg iron-folic acid 1 mg-omg3 capsule 30 mg iron-10 mg iron-1 mg capsule PO famotidine [Pepcid] 20 mg tablet 20 mg PO DAILY Qty: 30 6RF Referrals / Follow Up: Care Physician,No Primary [Primary Care Provider] - Disposition Disposition (needs filled in before D/C Order can be placed): Home, Self Care
[2022-08-01] VITALS (15 sets, daily range): BP systolic 104–135; BP diastolic 57–82; PULSE 72–109; RESP 14–18; TEMP 36.4–37.1; O2SAT 95–97
--- NOTE | 2022-08-01 08:50 | PN.OBGYN_ITS ---
Subjective Subjective Patient doing well without complaints. Tolerating PO. Ambulating and voiding without difficulty. feeding well. Denies chest pain, shortness of breath, calf pain/swelling, fevers, chills, lightheadedness. Objective Data Objective Data Vital Signs: Vital Signs Temp Pulse Resp BP Pulse Ox O2 Del Method 98.6 F 90 16 129/75 H 95 Room Air 08/01/22 08:30 08/01/22 08:30 08/01/22 08:30 08/01/22 08:30 08/01/22 08:30 08/01/22 08:30 Oxygen Delivery Method Room Air Weight: 164 lb 4 oz Body Mass Index (BMI) 25.0 Intake & Output: Intake and Output for Last 24 Hours 07/30/22 07/31/22 08/01/22 23:59 23:59 23:59 Intake Total 829.17 / 829.17 Output Total 1000 / 1000 Balance 829.17 / 829.17 -1000 / -1000 Lab / Micro Data Result Diagrams: 07/31/22 20:50 Labs: Laboratory Results - last 24 hr 07/31/22 20:50: WBC 20.1 H, RBC 4.45, Hgb 14.7, Hct 43.1, MCV 96.9, MCH 33.0 H, MCHC 34.1, RDW Std Deviation 43.0, RDW Coeff of Luma 12.1, Plt Count 270, MPV 9.5, Immature Gran % (Auto) 1.100 H, Neut % (Auto) 73.8 H, Lymph % (Auto) 16.6 L , [place] % (Auto) 7.6, Eos % (Auto) 0.6, Baso % (Auto) 0.3, Absolute Neuts (auto) 14.8 H, Absolute Lymphs (auto) 3.33, Nucleated RBC % 0, Differential Comment SEE COMMENT, Diff Path Review May foll, Platelet Estimate ADEQUATE, RBC Morphology N CHROM, Anisocytosis RARE, Macrocytosis RARE 07/31/22 20:50: Blood Type A POSITIVE, Antibody Screen NEGATIVE ROS Constitutional Constitutional: Reports systems reviewed and no addt'l complaints, except as documented Cardiovascular Cardiovascular: Reports systems reviewed and no addt'l complaints, except as documented Respiratory/Chest Respiratory/Chest: Reports systems reviewed and no addt'l complaints, except as documented Gastrointestinal Gastrointestinal: Reports systems reviewed and no addt'l complaints, except as documented Physical Exam Const alert, oriented x3 and no apparent distress HEENT Head and Scalp: atraumatic Resp normal respiratory effort GI soft to palpation and non-tender Bimanual Exam - Vag & Uterus: uterus non-tender Uterus Palpation: uterus fundus firm (below Umbilicus) Assessment & Plan (1) Vaginal delivery: COMMENT: SM 41 girl IAL (2) Anxiety and depression: COMMENT: h/o PPA no meds preivously, encouraged counseling.stable (3) LGSIL (low grade squamous intraepithelial dysplasia): COMMENT: h/o. nl 09/19. repeat PP PLAN: Plan s/p PPD # 1 1. routine post delivery care 2. breast feeding- support given 3. rh positive 4. rubella immune
[2022-08-01 15:06] LABS: Pathologist Review Reviewed
[2022-08-01] MEDS: Naproxen 500 MG Tablet PO (15:34)
[2022-08-02 04:20] VITALS: BP 95/62; PULSE 71; RESP 16; TEMP 36.9; O2SAT 96
[2022-08-02 09:24] VITALS: BP 96/71; PULSE 84; RESP 14; TEMP 36.9; O2SAT 97
--- NOTE | 2022-08-02 10:43 | PCM.PN.OB ---
Subjective Subjective Patient doing well without complaints. Tolerating PO. Ambulating and voiding without difficulty. Feeding well. Denies chest pain, shortness of breath, calf pain/swelling, fevers, chills, lightheadedness. Objective Data Objective Data Vital Signs: Vital Signs Temp Pulse Resp BP Pulse Ox O2 Del Method 98.4 F 84 14 96/71 97 Room Air 08/02/22 09:24 08/02/22 09:24 08/02/22 09:24 08/02/22 09:24 08/02/22 09:24 08/02/22 09:24 Oxygen Delivery Method Room Air Weight: 164 lb 4 oz Body Mass Index (BMI) 25.0 Intake & Output: Intake and Output for Last 24 Hours 07/31/22 08/01/22 08/02/22 23:59 23:59 23:59 Intake Total 829.17 / 829.17 Output Total 1000 / 1000 Balance 829.17 / 829.17 -1000 / -1000 Lab / Micro Data Result Diagrams: 07/31/22 20:50 Labs: Laboratory Results - last 24 hr 07/31/22 20:50: Diff Path Review Reviewed ROS Constitutional Constitutional: Denies chills, fatigue, fever(s), poor appetite or weakness Eyes Eyes: Denies blurry vision, change in vision, seeing flashes or spots in vision ENT HEENT: Denies dizziness, headache(s), loss taste/smell or sore throat Cardiovascular Cardiovascular: Denies chest pain, dizziness, dyspnea, irregular heart rhythm, palpitations or rapid heart rate Respiratory/Chest Respiratory/Chest: Denies chest tightness, cough, dyspnea or breast pain Gastrointestinal Gastrointestinal: Denies abdominal pain, constipation or vomiting Genitourinary Genitourinary: Denies dysuria or flank pain Musculoskeletal Musculoskeletal: Denies difficulty walking, joint pain, limited range of motion or numbness Neurologic Neurologic: Denies abnormal movements, abnormal speech, dizziness, numbness, seizure-like activity or syncope Psychiatric Psychiatric: Denies anxiety, behavioral changes, change in appetite, confusion, depression or suicidal thoughts Physical Exam Const alert, oriented x3 and no apparent distress General Appearance: cooperative and comfortable Resp normal respiratory effort Cardio regular rate GI normal to inspection, nondistended, normoactive bowel sounds GI Narrative: uterus is firm below umbilicus Palpation: soft Back/Spine no CVA tenderness and thoraco-lumbar ROM normal Extremity normal to inspection, no clubbing, cyanosis or edema, no calf tenderness and no pedal edema Psych mental status grossly normal, thought process normal, cooperative, affect normal, speech normal, activity/motor behavior normal, denies homicidal ideation and denies suicidal ideation Assessment & Plan (1) Vaginal delivery: COMMENT: PATSY 41 girl IAL PLAN: s/p PPD # 1 1. routine post delivery care 2. breast feeding- support given 3. rh positive 4. rubella immune 5. dc to home today (2) Anxiety and depression: COMMENT: h/o PPA no meds preivously, encouraged counseling.stable
--- NOTE | 2022-08-06 13:46 | NURSING ---
Follow up phone call completed. Spoke with patient by phone. Mother is feeling well and bleeding has decreased since delivery. No concerns with headaches, visual changes, flulike symptoms, or emotional changes. Baby is doing well and nursing great! No questions or concerns at this time.
== END 2022-08-02 11:30 | disposition home or self-care (01) | DRG 807 ==
LOC: WPOUT 20:53 → WP 20:53
PROVIDERS: Admitting Provider Obstetrics & Gynecology; Visit Provider Obstetrics & Gynecology
DX: O99.344 Other mental disorders complicating childbirth (principal); Z37.0 Single live birth; B95.1 Streptococcus, group B, as the cause of diseases classified elsewhere; F41.9 Anxiety disorder, unspecified; F32.A Depression, unspecified; O99.824 Streptococcus B carrier state complicating childbirth; Z3A.40 40 weeks gestation of pregnancy
CPT/HCPCS: 59025; 59050; 85025; 86850; 86900; 86901; 99218; J7120; G0378

== ENCOUNTER → 2022-09-15 | Outpatient (CLI) | payer OTHER, SELFPAY | END | disposition home or self-care (01) | LOC: LABSPEC 13:25 | PROVIDERS: Visit Provider Obstetrics & Gynecology | DX: N89.8 Other specified noninflammatory disorders of vagina (principal) | CPT/HCPCS: 87070; 87205 ==

== ENCOUNTER → 2023-08-17 | Outpatient (CLI) | payer OTHER, SELFPAY ==
[2023-08-17 10:46] LABS: Absolute Lymphocyte Count 2.32 X10^3/uL (0.83-4.51); Absolute Neutrophil Count 9.2 X10^3/uL (2.0-7.7); Basophil# 0.05 X10^3/uL; Basophil% 0.4 % (0-1); Eosinophil# 0.07 X10^3/uL; Eosinophils% 0.6 % (0-5); Hematocrit 38.7 % (37-47); Hemoglobin 13.6 g/dL (12.0-15.0); Lymphocyte # 2.32 X10^3/ul (0.83-4.51); Lymphocyte % 18.8 % (19-41); Mean Corp Hgb Conc 35.1 g/dL (32-36); Mean Corpuscular Hgb 32.3 pg (27.0-32.0); Mean Corpuscular Volume 91.9 fL (81-99); Mean Platelet Vol. 8.9 fl (6.2-12.0); Monocyte# 0.63 X10^3/uL; Monocyte% 5.1 % (0-10); NRBC Flagged by Analyzer 0 % (0-5); Neutrophil # 9.21 X10^3/uL (2.7-7.7); Neutrophil % 74.7 % (47-70); Platelet Count 282 K/mm3 (150-450); RBC Distribution Width CV 11.9 % (11.6-14.6); RBC Distribution Width SD 39.6 fl (35.1-43.9); Red Blood Count 4.21 M/mm3 (4.2-5.4); White Blood Count 12.3 K/mm3 (4.4-11.0)
[2023-08-17 11:51] LABS: HIV - WCH Non-Reactive (Nonreactive); Hepatitis B Surface Antigen Non-Reactive (Nonreactive); Hepatitis C Antibody Non-Reactive (Nonreactive); Rubella IgG Reactive (Nonreactive); Syphilis Antibodies Non-reactive
[2023-08-20 12:09] LABS: Chlamydia By Nucleic Acid AMP Negative (Negative); Gonococcus By Nucleic Acid AMP Negative (Negative)
[2023-08-24 19:57] LABS: HPV Reflexed? NOT INDICATED
== END | disposition home or self-care (01) ==
PROVIDERS: Referring Provider Obstetrics & Gynecology; Visit Provider Obstetrics & Gynecology
DX: Z34.80 Encounter for supervision of other normal pregnancy, unspecified trimester (principal)
CPT/HCPCS: 36415; 85025; 86703; 86762; 86780; 86803; 86850; 86900; 86901; 87086; 87340; 87491; 87591; 88175; G0145

== ENCOUNTER → 2023-12-28 | Outpatient (CLI) | payer OTHER, SELFPAY ==
--- OUTSIDE RECORDS SUMMARY | 2023-12-28 11:32 | XMS RPT_ITS | CCD ---
Author Name Unknown Address [address] [place] [address] Organization [facility] Care Team Providers Care Hospice Entrance Attendant Name Role Phone Juliocesar Sawnson Unavailable Unavailable Arlyn Reyes MD, Lizzy Davis Primary Care Provider Arlyn Reyes MD, Lizzy Davis Primary Care Provider LIZZY FRASER Referring Unavaila ble ARLYN REYES, LIZZY DAVIS Primary Care Unavaila ble PÉREZBENJY Cordova Referring Unavailable FALVO LANG, LIZZY DAVIS Primary Care Unavaila ble PÉREZBENJY Cordova Referring Unavailable FALVO LANG, LIZZY DAVIS Primary Care Unavaila ble PÉREZBENJY Cordova Admitting Unavailable BENJY ORTEZ Attending Unavailable FALLIZZY BARRETO Primary Care Unavaila ble MARCANTHVANI HERRON Primary Care UnavailROSIE Rudd Referring Unavailable CARRIE CINTRON Attending Unavailable Allergies Allergy Classification Reported Allergen(s) Allergy Type Date of Onset Reaction(s) Facility (4 sources) Sulfamethoxazole / Trimethoprim; Translations: [SULFAMETHOXAZOLE-TR IMETHOPRIM] Drug Allergy Hives, Vomiting [facility] Medications Completed/Discontinued Medications Medication Drug Class(es) Dates Sig (Normalized) Sig (Original) clobetasol propionate 0.5 mg/ml topical solution (3 sources) Corticosteroid Start: 05-15-2021 Clobetasol Propionate (TEMOVATE) 0.05 % external solution Indications: Psoriasis Apply topically two times a day to affected areas of scalp 50 mL 3 05/15/2021 Active Problems Active Problems Problem Classification Problem Date Documented Date Episodic/Chronic Other congenital anomalies (1 source) Thyroglossal duct cyst; 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 Other congenital anomalies (1 source) Congenital malformations of other endocrine glands; 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] Onset: 10-06-2022 Chronic Unclassified (1 source) Unknown / UNK(Unknown) Onset: 12-13-2017 Unclassified (1 source) Encounter for screening for COVID-19; Translations: [Encounter for screening for COVID-19] Onset: 12-13-2022 Past or Other Problems Problem Classification Problem Date Documented Da te Episodic/Chronic Other skin disorders (1 source) Sebaceous cyst; Translations: [Sebaceous cyst] Onset: 09-05-2022 Episodic Unclassified (1 source) COUGH,FEVER,SORE THROAT,NAUSEA Onset: 12-13-2017 Results Test Name Value Interpretation Reference Range Facil ity Vital Signs Date Time Vital Sign Value Performing Clinician Faci lity 12-16-2022 13:00-0500 Body temperature 97.7 [degF] Benjy Ortez MD Work Phone: [facility] 12-16-2022 13:00-0500 Diastolic blood pressure 73 mm[Hg] Benjy Ortez MD Work Phone: [facility] 12-16-2022 13:00-0500 Respiratory rate 16 /min Benjy Ortez MD Work Phone: [facility] 12-16-2022 13:00-0500 SaO2% (BldA) [Mass fraction] 96 % Benjy Ortez MD Work Phone: [facility] 12-16-2022 13:00-0500 Systolic blood pressure 115 mm[Hg] Benjy Ortez MD Work Phone: [facility] 12-16-2022 11:54-0500 Heart rate 95 /min Benjy Ortez MD Work Phone: [facility] 12-16-2022 08:30-0500 Body height 172.7 cm Benjy Ortez MD Work Phone: [facility] 12-16-2022 08:30-0500 Body weight 59.78 kg Benjy Ortez MD Work Phone: [facility] Encounters Encounter Date Encounter Type Care Provider Facility Start: 10-29-2023 End: 10-29-2023 ambulatory VANI SAMUEL [place] [facility] [[email or web address] Start: 12-16-2022 ambulatory BENJY Hoyos ility:[id number] Start: 12-16-2022 End: 12-16-2022 Subsequent hospital visit by physician Benjy Ortez MD Work Phone: [facility] Surgery Procedures Date Procedure Procedure Detail Performing Clinician Start: 12-16-2022 Urine test visual color cmprsn meths Benjy Ortez MD Work Phone: Plan of Treatment Date Care Activity Detail Author Start: 11-30-2022 DEPRESSION ASSESSMENT DEPRESSION ASS ESSMENT [facility] Start: 07-31-2022 Influenza vaccination INFLUENZA (#1) [facility] Start: 11-30-2021 [facility] Start: 05-29-2021 COVID-19 VACCINE (3 - Booster for Pfizer series) COVID-19 VACCINE (3 - Booster for Pfizer series) [facility] Start: 2017 PAP TESTING PAP TESTING [facility] Start: 2015 Urine microalbumin profile DTAP,TDAP,TD (1 - Tdap) [facility] Start: 2014 HEPATITIS C SCREENING HEPATITIS C SC EKTA [facility] Start: 2014 HIV SCREENING HIV SCREENING [facility] Start: 2010 PEDS TO ADULT TRANSI TION ANNUAL ASSESSMENT PEDS TO ADULT TRANSITION ANNUAL ASSESSMENT [facility] Start: 2008 PEDS TO ADULT TRANSI TION INITIAL DISCUSSION PEDS TO ADULT TRANSITION INITIAL DISCUSSION [facility] Start: 2007 HPV VACCINE (1 - 2-d ose series) HPV VACCINE (1 - 2-dose series) [facility] Start: 1996 HEPATITIS B (1 of 3 - 3-dose series) HEPATITIS B (1 of 3 - 3-dose series) [facility] SURGICAL PATHOLOGY [place] Work Phone: Payers Date Payer Category Payer Unknown MMO MMO [employer] [id number] 2020-Present [phone] [address] [place] [address] [facility] [id number] 2020 Unknown [id number] 2015 Unknown [id number] 1995 Unknown [id number] Social History Date Type Detail Facility Start: 05-15-2021 End: 12-10-2022 Tobacco smoking status NHIS Never smoked tobacco [facility] Start: 05-15-2021 End: 12-10-2022 Tobacco use and exposure Smokeless tobacco non-user [facility] Start: 1995 Sex Assigned At Not on file [facility] Start: 08-26-2022 End: 09-05-2022 Exposure to SARS-CoV-2 (event) Not sure [facility] Start: 12-16-2022 Alcohol intake Ex-drinker (finding) [facility] NEGATED: Highlighted rowStart: NINF History of tobacco use Passive smoker [facility] Clinical Note 12-16-2022 Note Date & Type Note Facility 12-16-2022 Note HNO ID: [id number] Author: KENNEDI Rivera Service: ? Author Type: Water Engineer Type: Anesthesia Procedure Notes Filed: 12/16/2022 9:34 AM Note Text: ANESTHESIOLOGY PROCEDURE NOTE Airway General Information Procedure Start Time/Medication Administration: 12/16/2022 9:21 AM Patient location during procedure: OR Timeout Performed Pre-procedure: timeout performed Consent Obtained: Yes Patient identity confirmed: arm band Staffing Anesthesiologist: Ed Castillo MD CAA: KENNEDI Rivera Performed by: BLACK Indications and Patient Condition Indications for airway management: anesthesia Preoxygenated: yes anesthesia circuit Patient position: sniffing Method: asleep Final Airway Details Final airway type: endotracheal airway Final Endotracheal Airway: ETT Cuffed: yes Successful intubation technique: direct laryngoscopy Endotracheal tube insertion site: oral Blade: Luis Blade size: #3 ETT size (mm): 7.0 Measured from: lips Measurement (cm): 21 Placement verified by: chest auscultation and capnometry Cormack-Lehane Classification: grade I - full view of glottis Number of attempts at approach: 1 SIGNATURE: KENNEDI Rivera PATIENT NAME: Rashida Hutson DATE: December 16, 2022 TIME: 9:33 AM CSN: [id number] [facility] Surgical operation note 12-16-2022 Operative Report - Benjy Ortez MD - 12/16/2022 10:40 AM EST Note Date & Type Note Facility 12-16-2022 Surgical operation note Formatting of this note might be differe nt from the original. [facility] - Operative Notes RASHIDA HUTSON : 1995 AGE: 27 SEX: F CSN: [id number] [facility]: LOCATION: [place] [address] ATTENDING PHYSICIAN: BENJY ORTEZ DATE OF SERVICE: 12/16/2022 PREOPERATIVE DIAGNOSIS: Thyroglossal duct cyst. POSTOPERATIVE DIAGNOSIS: Thyroglossal duct cyst. OPERATION: Excision of thyroglossal duct cyst (Mariah procedure). SURGEON: Benjy Ortez MD ANESTHESIA: General. INDICATIONS: This 27-year-old female presents with a submental mass overlying the hyoid bone slightly off the midline into the left anterior neck. This mass is cystic in texture and moves with tongue protrusion. It is clinically and radiographically consistent with a thyroglossal duct cyst. She has been recommended excision of this cyst with a Mariah procedure which involves removal of the cyst in the midportion of the hyoid bone. The procedure has been reviewed in detail and the risks have been discussed, which include, but are not limited to, recurrence of the cyst, dysphagia, bleeding, infection, scar formation and pain with tongue protrusion. She has elected to proceed. DESCRIPTION OF PROCEDURE: The patient was brought into the operating room and placed on the operating room table in supine position. Orotracheal intubation/general anesthesia was induced without complication. A shoulder roll was placed beneath the patient's shoulder and the head was placed into gentle extension. The anterior neck was prepped and draped in a sterile fashion. The patient had a cystic mass present overlying the area of the hyoid bone, which was approximately 3.5 cm in diameter. It was slightly off the midline into the left neck extending into the anterior submandibular triangle. The incision would be placed in the midline neck and an appropriate skin crease just below the level of the hyoid bone. It was approximately 3.5 cm in length. It was locally infiltrated with 1% lidocaine with 1:100,000 concentration of epinephrine. After adequate time for vasoconstriction, the incision was made and carried through the underlying platysmal muscle. Dissection was then carried down in the midline neck towards the inferior aspect of the cyst. The tract from the cyst, which was extending towards the midline thyroid gland was isolated, cauterized and divided. This was then used to provide traction on the cyst. Circumferential dissection was carried out around the cyst using a combination of blunt dissection with a Mosquito clamp and sharp dissection using Littler scissors. Bleeding was controlled using bipolar cautery. The cyst extended into the anterior aspect of the left submandibular triangle. Great care was taken as dissection was carried in this area to try and avoid any injury to the marginal branch of the facial nerve. Intense inflammatory response was present around the cyst and the tissue was fibrotic and thickened. Careful and meticulous dissection was carried out around the mass circumferentially until it was left anchored over the hyoid bone. The suprahyoid and infrahyoid musculature was taken off the hyoid bone on the right lateral aspect. The bone was cut in the paramedian area just off the midline, which allowed additional mobilization of the hyoid and the cyst. Further muscular attachments were taken down superiorly until the hyoid on the left side could be isolated and cut with a small bone cutter. The hyoid bone was then fully mobilized. Dissection was carried out until the cyst tract could be followed toward the base of tongue. At this point in time, the cyst tract was crossclamped and the specimen was removed, which was the thyroglossal duct cyst and the attached hyoid bone. The cyst tract was tied off in a double fashion using a 2-0 silk suture ligature and then oversewn with 3-0 Vicryl stitch on a tapered needle. Saline was then placed in the operative bed and the endotracheal tube cuff was deflated and positive pressure was given to make sure that there was no injury to the pharynx. No bubbling was appreciated consistent with free air. The infrahyoid and suprahyoid musculature was then approximated using interrupted sutures of 3-0 Vicryl stitch. This musculature was also approximated in the midline providing a second musculature closure overtop of the tied-off cyst tract. A drain was then placed. A 7 mm round drain was placed and brought out through a separate stab incision. The platysma muscle was then closed over top of the drain and the skin was closed using a running subcuticular 4-0 Vicryl stitch. The drain was anchored with 1 stitch of 3-0 silk. There were no intraoperative complications. Estimated blood loss was 15 mL. Benjy Ortez MD /[id number] SSI File#: [id number] documented in this encounter [facility] History and physical note 12-16-2022 Benjy Ortez MD - 12/16/2022 8:56 AM EST Note Date & Type Note Facility 12-16-2022 History and physi rachael note UPDATED HISTORY AND PHYSICAL EXAMINATION SERVICE DATE: 12/16/2022 SERVICE TIME: 8:56 AM PHYSICAL EXAM MUST BE COMPLETED ON ADMISSION The History and Physical (completed in the past 30 days) has been reviewed and the patient has been examined. The contents accurately reflect the patient's condition with the following additions or revisions since the H&P was completed. Examination indicates no changes. This H&P can be found in the scanned documents dated 11/28/22. SIGNATURE: Benjy Ortez MD PATIENT NAME: Rashida Hutson DATE: December 16, 2022 TIME: 8:56 AM documented in this encounter [facility] Progress note 12-15-2022 Note Date & Type Note Facility 12-15-2022 Note HNO ID: [id number] Author: Regi Monaco RN Service: Nursing Author Type: Registered Nurse Type: Progress Notes Filed: 12/15/2022 3:54 PM Note Text: PRE-PROCEDURE INSTRUCTIONS TO PREPARE FOR YOUR PROCEDURE: Your arrival time for your procedure is 0815. Do NOT eat any solid foods after MIDNIGHT the night prior to your procedure - this includes gum or mints. You can drink clear liquids* up until 0000, which is 2 hours before your arrival time. *Clear liquids = water, carbohydrate drink (sports drink that is clear or yellow in color), Ensure Pre-Surgery (given by ALECIA or your ), fruit juice without pulp (apple/cranberry), clear tea, black coffee (no cream). NO ALCOHOL. Shower the morning of the procedure, put on clean clothes, and have clean sheets for your bed to help prevent infection after your procedure. Leave all valuables such as jewelry including rings, piercings, wallets, and purses at home. Wear comfortable, loose-fitting clothing. If you wear glasses or contacts, please bring a case. SPECIAL INSTRUCTIONS: If instructed, bring your first voided urine specimen with you. If you were provided skin preparation to use prior to your procedure, complete this as directed. If you were provided Ensure Pre-Surgery drink, you need to drink this at NA. This should be consumed quickly (in less than 5 minutes, rather than sipped over time) If you use crutches or a walker, bring them with you. If you have a home CPAP/BIPAP machine, bring it with you. If you were instructed to complete a fleets enema or bowel prep, complete as directed. Bring copy of Living Will/Power of Slot Tag Inserter. Do not smoke or chew. If you use tobacco, quit or at least cut down before surgery. Do not smoke or chew after midnight the day before your surgery. This effects bleeding, infection, healing, and so much more. Do not take any Diet or Herbal Supplements 2 weeks prior to your surgery date. Please notify your physician if there is any change in your physical condition such as a cold, cough, fever, sore throat, or skin irritation near the surgical site. Visitors under the age of 14 are restricted in the Surgery Center. UPON ARRIVAL: Access to [facility] (the [facility]) is located on [address] Tube Balancer parking is available for your convenience from 5am-5pm- there is a $5.00 charge for this service. Take the elevators directly inside the entrance to the 1st Floor Surgery Lobby. Sign in at the podium located to the left when you get off the elevators. A payment may be expected at the time of service. One visitor may come back to the preoperative area with you. The preoperative staff will be reviewing your medical history, please let them know if you prefer not to have a visitor with you during this time. Once you are ready for surgery, two visitors at a time are permitted in your preoperative room. PATIENT MEDICATION INSTRUCTIONS Please read below carefully for your personalized instructions. Medications: If you are on blood thinner or anticoagulants including aspirin, please confirm with your surgical team on when to stop these medications. Unless instructed differently by your surgical team, stay on all of your medications until your surgery. NO MEDS DAY OF SURGERY If you have any medication changes between receiving these instructions and your surgery date, please provide this updated information with the nurse who calls you the week day prior to your surgical procedure so we can update your list and provide you with updated instructions for the morning of your procedure. [facility] History of Present illness Narrative 12-15-2022 Regi Monaco RN - 12/15/2022 3:53 PM Mir Brady APRN.CNP - 12/15/2022 8:19 AM EST Note Date & Type Note Facility 12-15-2022 History of Presen t illness Narrative PRE-PROCEDURE INSTRUCTIONS TO PREPARE FOR YOUR PROCEDURE: Your arrival time for your procedure is 0815. Do NOT eat any solid foods after MIDNIGHT the night prior to your procedure - this includes gum or mints. You can drink clear liquids* up until 0000, which is 2 hours before your arrival time. *Clear liquids = water, carbohydrate drink (sports drink that is clear or yellow in color), Ensure Pre-Surgery (given by ALECIA or ender Rollins), fruit juice without pulp (apple/cranberry), clear tea, black coffee (no cream). NO ALCOHOL. Shower the morning of the procedure, put on clean clothes, and have clean sheets for your bed to help prevent infection after your procedure. Leave all valuables such as jewelry including rings, piercings, wallets, and purses at home. Wear comfortable, loose-fitting clothing. If you wear glasses or contacts, please bring a case. SPECIAL INSTRUCTIONS: If instructed, bring your first voided urine specimen with you. If you were provided skin preparation to use prior to your procedure, complete this as directed. If you were provided Ensure Pre-Surgery drink, you need to drink this at NA. This should be consumed quickly (in less than 5 minutes, rather than sipped over time) If you use crutches or a walker, bring them with you. If you have a home CPAP/BIPAP machine, bring it with you. If you were instructed to complete a fleets enema or bowel prep, complete as directed. Bring copy of Living Will/Power of Slot Tag Inserter. Do not smoke or chew. If you use tobacco, quit or at least cut down before surgery. Do not smoke or chew after midnight the day before your surgery. This effects bleeding, infection, healing, and so much more. Do not take any Diet or Herbal Supplements 2 weeks prior to your surgery date. Please notify your physician if there is any change in your physical condition such as a cold, cough, fever, sore throat, or skin irritation near the surgical site. Visitors under the age of 14 are restricted in the Surgery Center. UPON ARRIVAL: Access to [facility] (the [facility]) is located on [address] Paybubble parking is available for your convenience from 5am-5pm- there is a $5.00 charge for this service. Take the elevators directly inside the entrance to the 1st Floor Surgery Lobby. Sign in at the podium located to the left when you get off the elevators. A payment may be expected at the time of service. One visitor may come back to the preoperative area with you. The preoperative staff will be reviewing your medical history, please let them know if you prefer not to have a visitor with you during this time. Once you are ready for surgery, two visitors at a time are permitted in your preoperative room. PATIENT MEDICATION INSTRUCTIONS Please read below carefully for your personalized instructions. Medications: If you are on blood thinner or anticoagulants including aspirin, please confirm with your surgical team on when to stop these medications. Unless instructed differently by your surgical team, stay on all of your medications until your surgery. NO MEDS DAY OF SURGERY If you have any medication changes between receiving these instructions and your surgery date, please provide this updated information with the nurse who calls you the week day prior to your surgical procedure so we can update your list and provide you with updated instructions for the morning of your procedure. Summary: DOS MEDS PATIENT MEDICATION INSTRUCTIONS Please read below carefully for your personalized instructions. Medications: If you are on blood thinner or anticoagulants including aspirin, please confirm with your surgical team on when to stop these medications. Unless instructed differently by your surgical team, stay on all of your medications until your surgery. NO MEDS DAY OF SURGERY If you have any medication changes between receiving these instructions and your surgery date, please provide this updated information with the nurse who calls you the week day prior to your surgical procedure so we can update your list and provide you with updated instructions for the morning of your procedure. documented in this encounter [facility] Progress note 12-15-2022 Note Date & Type Note Facility 12-15-2022 Note HNO ID: [id number] Author: Rhonda Brady APRN.CARDIAC REHABILITATION PROGRAM DIRECTOR Service: ? Author Type: Nurse Practitioner Type: Progress Notes Filed: 12/15/2022 8:20 AM Note Text: Summary: DOS MEDS PATIENT MEDICATION INSTRUCTIONS Please read below carefully for your personalized instructions. Medications: If you are on blood thinner or anticoagulants including aspirin, please confirm with your surgical team on when to stop these medications. Unless instructed differently by your surgical team, stay on all of your medications until your surgery. NO MEDS DAY OF SURGERY If you have any medication changes between receiving these instructions and your surgery date, please provide this updated information with the nurse who calls you the week day prior to your surgical procedure so we can update your list and provide you with updated instructions for the morning of your procedure. [facility] Progress note 10-06-2022 Note Date & Type Note Facility 10-06-2022 Note HNO ID: [id number] Author: RT Jessica(R) Service: Radiology Author Type: Technologist Type: Progress Notes Filed: 10/06/2022 9:31 AM Note Text: Radiology Service Progress Note DATE OF SERVICE: October 06, 2022 TIME: 9:30 AM PATIENT IDENTITY VERIFICATION COMPLETED USING TWO (2) STANDARD IDENTIFIERS: Name and Date of confirmed by patient verbally. FALL SCREENING: Has the patient had 2 falls in the last year or 1 fall with injury or currently using an Ambulatory Assistive Device (Walker, Cane, Wheelchair, Crutches, etc.)? No PATIENT GENDER DATA: Female. status: status: No status: NO. PATIENT RELEVANT IMPLANT DATA REVIEWED: Yes ALLERGIES: Reviewed and unchanged CONTRAST ALLERGY: NO. EXAM: CT -CONTRAST INDUCED NEPHROPATHY RISK FACTORS: Not applicable CREATININE: No results found for: CREAT, EGFROTH, EGFRAA P.O.C.T. RESULTS: POC done: Yes, See Lab Tab October 06, 2022 TREATMENT: N/A PERIPHERAL IV DATA: Ambulatory: A peripheral IV was started in the Right antecubital site with a Angio cath: 20 gauge. RADIOLOGY DEPARTMENT: CT; Exam(s) Completed: Neck SIGNATURE: RT Jessica(R) PATIENT NAME: Rashida Hutson DATE: October 06, 2022 TIME: 9:30 AM [facility] Progress note 05-15-2021 Note Date & Type Note Facility 05-15-2021 Note HNO ID: [id number] Author: Fannie Anderson PA-C Service: ? Author Type: Physician Roving Teller Type: Progress Notes Filed: 05/15/2021 3:10 PM Note Text: This is a 26 year old White female who presents today with psoriasis. She has had this since she was in middle school. She states it has been the worst since having a baby in Jun 2020. She is currently breast feeding. She states he scalp is the worst as it is very itchy and even painful at times. She also has trouble with her neck, forehead, and eyelids occasionally. She also has a mole on her belly button that she would like to have checked. She states it has changed slightly from being . She feels it is slightly bigger and raised. She does have some discoloration of her forehead. She states it will be itchy at times. There is no problem list on file for this patient. ALLERGIES Allergen Reactions - Bactrim [Sulfametho* Hives, Vomiting FAMILY HISTORY Problem Relation Age of Onset - Psoriasis Father - Psoriasis Sister - Psoriasis Sister - Psoriasis Paternal Grandmother Social History Tobacco Use - Smoking status: Never Smoker - Smokeless tobacco: Never Used Substance Use Topics - Alcohol use: Not on file - Drug use: Never Current Outpatient Medications Medication Sig Dispense Refill - ketoconazole (NIZORAL) 2 % shampoo Apply 2-3 times per week to affected areas of scalp, leave on for 3-4 minutes then rinse 120 mL 5 - Clobetasol Propionate (TEMOVATE) 0.05 % external solution Apply topically two times a day to affected areas of scalp 50 mL 3 No current facility-administered medications for this visit. PAST SURGICAL HISTORY Procedure Laterality Date - ACL KARTIK MAINTENANCE Right 2011 acl repair right REVIEW OF SYSTEMS GENERAL: Patient feels well and denies any recent fevers, chills, or night sweats. SKIN: Negative for lesions Positive for itching and rash PHYSICAL EXAMINATION BP 117/74 Temp (Src) 97.7 (Temporal) Ht 5' 8 (1.73m) Wt 123 lb 3.2 oz (55.9kg) BMI 18.74 kg/(m2). The patient is pleasant and in no distress. She is alert and oriented x 3. Involving the scalp, face, abdomen. -few pink patches of posterior occipital scalp, remaining aspect of scalp is clear, ears, face and extremities are clear from rash -hypopigmented patch of forehead without scale ASSESSMENT/PLAN: 1. Psoriasis - ICD9: 696.1, ICD10: L40.9 (primary diagnosis) -affecting scalp (minimal noted), ears and face (clear currently) -may use clobetasol solution 0.05% to areas of scalp bid prn, eRx sent -may use otc creams to face - CLOBETASOL 0.05 % SCALP SOLUTION 2. Seborrheic dermatitis - ICD9: 690.10, ICD10: L21.9 -will start ketoconazole shampoo 2% to scalp 2-3x/ week, eRx sent -feel some of the discoloration is from the seborrheic dermatitis, will treat to see how it does - KETOCONAZOLE 2 % SHAMPOO 3. Dermal nevus - ICD9: 216.9, ICD10: D23.9 -abdomen (superior to umbilicus) -benign, patient reassured -Recommend self-monitoring of lesions for ABCDE changes, discussed with patient Fannie Anderson PA-C Return in about 4 months (around 09/14/2021). [facility] Evaluation note Note Date & Type Note Facility documented in this encounter [facility] Summary Purpose Family History No Family History Records FoundNo Family History Records FoundNo Family History Records FoundNo Family History Records Found Advance Directives No Advanced Directives Records FoundNo Advanced Directives Records FoundNo Advanced Directives Records FoundNo Advanced Directives Records Found Medications Administered Section Inactive Administered Medications - up to 3 most recent administrations Medication Order MAR Action Action Date Dose Rate Site acetaminophen 300 mg - codeine 30 mg tablet (TYLENOL #3) 1-2 tablet, ORAL, EVERY 4 HOURS NEEDED, Starting on Thu12/16/22 at 1120, Until Thu12/17/22 at 0304, Moderate Pain (4-6) - Enteral acetaminophen 650 mg tab(s) (TYLENOL) 650 mg, ORAL, ONCE, 1 dose, On Thu12/16/22 at 1130, If ordered PRN for pain, patient/guardian may elect to receive this medication for higher pain levels INSTEAD of the opioid, if preferred: Yes, Recovery or Phase I (only) Given 12/16/2022 11:30 AM EST 650 mg Oral diphenhydrAMINE 12.5 mg injection (BENADRYL) 12.5 mg, INTRAVENOUS, EVERY 4 HOURS NEEDED, 2 doses, Starting on Thu12/16/22 at 1056, Until Thu12/17/22 at 0304, itching/rash, Nausea/Vomiting - Third Line - Parenteral, Recovery or Phase I (only) fentaNYL 50 mcg injection (SUBLIMAZE) 50 mcg, INTRAVENOUS, EVERY 10 MINUTES NEEDED, 4 doses, Starting on Thu12/16/22 at 1056, Until Thu12/17/22 at 0304, FIRST LINE THERAPY for pain score 1 or greater, USE FOR MILD PAIN (1-3) ONLY IF PATIENT IS UNABLE TO TOLERATE ORAL THERAPY, Recovery or Phase I (only) lactated ringers iv infusion 30 mL/hr, INTRAVENOUS, CONTINUOUS, Starting on Thu12/16/22 at 1000, Until Thu12/17/22 at 0304, Preprocedure Continued by Anesthesia 12/16/2022 9:14 AM EST 30 mL/hr Additional Source Comments INFORMATION SOURCE (unrecogn ized section and content) DATE CREATED AUTHOR AUTHOR'S ORGANIZ ATION 01/01/2022 [facility] DATE CREATED AUTHOR AUTHOR'S ORGANIZ ATION 12/24/2022 [facility] DATE CREATED AUTHOR AUTHOR'S ORGANIZ ATION 11/01/2023 [facility] Source Comments (unrecognize d section and content) In the event this informatio n is protected by the Federal Confidentiality of Alcohol and Drug Abuse Patient Records regulations: The Federal rules restrict any use of the information to criminally investigate or prosecute any alcohol or drug abuse patient.[facility] the event this information is protected by the Federal Confidentiality of Alcohol and Drug Abuse Patient Records regulations: The Federal rules restrict any use of the information to criminally investigate or prosecute any alcohol or drug abuse patient.[facility] the event this information is protected by the Federal Confidentiality of Alcohol and Drug Abuse Patient Records regulations: The Federal rules restrict any use of the information to criminally investigate or prosecute any alcohol or drug abuse patient.[facility] Care Teams (unrecognized sec tion and content) Hospice Entrance Attendant Relationship Specialty Start Date End Date Lizzy Fraser MD [id number] [place] [address] PCP - General Family Medicine 05/15/21 Reason for Visit (unrecogniz ed section and content) Referral ID Status Reason Start Date Expiration Date Visits Re quested Visits Authorized [id number] 1 1 Scheduled Active and Recently Administ ered Medications (unrecognized section and content) Continuous Medication Order 12/14/2022 12/15/2022 12/16/2022 lactated ringers iv infusion 30 mL/hr, INTRAVENOUS, CONTINUOUS, Starting on Thu12/16/22 at 1000, Until Thu12/17/22 at 0304, Preprocedure 0841 (New Bag/Syring e/Bottle - Provider: Lizzy Michelle RN)0914 (Continued by Anesthesia - Provider: KENNEDI Rivera) lactated ringers iv infusion 50 mL/hr, INTRAVENOUS, CONTINUOUS, Starting on Thu12/16/22 at 1100, Until Thu12/17/22 at 0304, Recovery or Phase I (only) 1100 (Due) PRN Medication Order 12/14/2022 12/15/2022 12/16/2022 acetaminophen 300 mg - codeine 30 mg tablet (TYLENOL #3) 1-2 tablet, ORAL, EVERY 4 HOURS NEEDED, Starting on Thu12/16/22 at 1120, Until Thu12/17/22 at 0304, Moderate Pain (4-6) - Enteral diphenhydrAMINE 12.5 mg injection (BENADRYL) 12.5 mg, INTRAVENOUS, EVERY 4 HOURS NEEDED, 2 doses, Starting on Thu12/16/22 at 1056, Until Thu12/17/22 at 0304, itching/rash, Nausea/Vomiting - Third Line - Parenteral, Recovery or Phase I (only) fentaNYL 50 mcg injection (SUBLIMAZE) 50 mcg, INTRAVENOUS, EVERY 10 MINUTES NEEDED, 4 doses, Starting on Thu12/16/22 at 1056, Until Thu12/17/22 at 0304, FIRST LINE THERAPY for pain score 1 or greater, USE FOR MILD PAIN (1-3) ONLY IF PATIENT IS UNABLE TO TOLERATE ORAL THERAPY, Recovery or Phase I (only) lidocaine 1%-EPINEPHrine 1:100,000 injection (CANCELED) X (OR/PROCEDURE) PRN, Starting on Thu12/16/22 at 0923, Until Thu12/16/22 at 1047, Intraprocedure 0923 (Given - Provid er: Benjy Ortez MD - Comment: neck) metoclopramide HCl 10 mg injection (REGLAN)(Linked Group 1) 10 mg, INTRAVENOUS, EVERY 6 HOURS NEEDED, Starting on Thu12/16/22 at 1056, Until Thu12/17/22 at 0304, Nausea/Vomiting - Second Line - Parenteral, USE WITH BENADRYL ORDER, EVERY 6 HOURS NEEDED Use when patient unable to take medications by mouth., Recovery or Phase I (only) metoclopramide HCl 10 mg tab(s) (REGLAN)(Linked Group 1) 10 mg, ORAL, EVERY 6 HOURS NEEDED, Starting on Thu12/16/22 at 1056, Until Thu12/17/22 at 0304, Nausea/Vomiting - Second Line - Enteral, EVERY 6 HOURS NEEDED Use when patient is able to take medications by mouth., Recovery or Phase I (only) NaCl 0.9% irrigation solution (CANCELED) X (OR/PROCEDURE) PRN, Starting on Thu12/16/22 at 0942, Until Thu12/16/22 at 1047, Intraprocedure 0942 (Given - Provid er: Benjy Ortez MD) ondansetron (PF) 4 mg injection (ZOFRAN)(Linked Group 2) 4 mg, INTRAVENOUS, EVERY 6 HOURS NEEDED, Starting on Thu12/16/22 at 1056, Until Thu12/17/22 at 0304, Nausea/Vomiting - First Line - Parenteral, EVERY 6 HOURS NEEDED Give IV push over 2 minutes. Use when patient unable to take medications by mouth., Recovery or Phase I (only) ondansetron (PF) 4 mg injection (ZOFRAN)(Linked Group 3) 4 mg, INTRAVENOUS, EVERY 6 HOURS NEEDED, Starting on Thu12/16/22 at 1158, Until Thu12/17/22 at 0304, Nausea/Vomiting - First Line - Parenteral, Give IV push over 2 minutes. Use when patient unable to take medications by mouth. ondansetron 4 mg tab(s) (ZOFRAN)(Linked Group 2) 4 mg, ORAL, EVERY 6 HOURS NEEDED, Starting on Thu12/16/22 at 1056, Until Thu12/17/22 at 0304, Nausea/Vomiting - First Line - Enteral, EVERY 6 HOURS NEEDED Use when patient able to take medications by mouth., Recovery or Phase I (only) ondansetron orally disintegrating 4 mg tab(s) (ZOFRAN ODT)(Linked Group 3) 4 mg, ORAL, EVERY 6 HOURS NEEDED, Starting on Thu12/16/22 at 1158, Until Thu12/17/22 at 0304, Nausea/Vomiting - First Line - Enteral, Use when patient able to take medications by mouth. Place tablet on tongue and allow to dissolve; do not chew. Open packaging using dry hands; do not push tablet through packaging. Linked Groups Order Group 1: metoclopramide HCl 10 mg tab(s) (REGLAN)Jump to med 10 mg, ORAL, EVERY 6 HOURS NEEDED, Starting on Thu12/16/22 at 1056, Until Thu12/17/22 at 0304, Nausea/Vomiting - Second Line - Enteral
EVERY 6 HOURS NEEDED Use when patient is able to take medications by mouth.
Recovery or Phase I (only) Or metoclopramide HCl 10 mg injection (REGLAN)Jump to med 10 mg, INTRAVENOUS, EVERY 6 HOURS NEEDED, Starting on Thu12/16/22 at 1056, Until Thu12/17/22 at 0304, Nausea/Vomiting - Second Line - Parenteral, USE WITH BENADRYL ORDER
EVERY 6 HOURS NEEDED Use when patient unable to take medications by mouth.
Recovery or Phase I (only) Group 2: ondansetron 4 mg tab(s) (ZOFRAN)Jump to med 4 mg, ORAL, EVERY 6 HOURS NEEDED, Starting on Thu12/16/22 at 1056, Until Thu12/17/22 at 0304, Nausea/Vomiting - First Line - Enteral
EVERY 6 HOURS NEEDED Use when patient able to take medications by mouth.
Recovery or Phase I (only) Or ondansetron (PF) 4 mg injection (ZOFRAN)Jump to med 4 mg, INTRAVENOUS, EVERY 6 HOURS NEEDED, Starting on Thu12/16/22 at 1056, Until Thu12/17/22 at 0304, Nausea/Vomiting - First Line - Parenteral
EVERY 6 HOURS NEEDED Give IV push over 2 minutes. Use when patient unable to take medications by mouth.
Recovery or Phase I (only) Group 3: ondansetron orally disintegrating 4 mg tab(s) (ZOFRAN ODT)Jump to med 4 mg, ORAL, EVERY 6 HOURS NEEDED, Starting on Thu12/16/22 at 1158, Until Thu12/17/22 at 0304, Nausea/Vomiting - First Line - Enteral
Use when patient able to take medications by mouth. Place tablet on tongue and allow to dissolve; do not chew. Open packaging using dry hands; do not push tablet through packaging.
Or ondansetron (PF) 4 mg injection (ZOFRAN)Jump to med 4 mg, INTRAVENOUS, EVERY 6 HOURS NEEDED, Starting on Thu12/16/22 at 1158, Until Thu12/17/22 at 0304, Nausea/Vomiting - First Line - Parenteral
Give IV push over 2 minutes. Use when patient unable to take medications by mouth.
FOR RECORDS PERTAINING TO PATIENTS WHO ARE OR HAVE BEEN ENROLLED IN A CHEMICAL DEPENDENCY/SUBSTANCEABUSE PROGRAM, SOME INFORMATION MAY BE OMITTED. This clinical summary was aggregated from multiple sources. Caution should be exercised in using it in the provision of clinical care. This summary normalizes information from multiple sources, and as a consequence, information in this document may materially change the coding, format and clinical context of patient data. In addition, data may be omitted in some cases. CLINICAL DECISIONS SHOULD BE BASED ON THE PRIMARY CLINICAL RECORDS. [facility] [employer] provides no warranty or guarantee of the accuracy or completeness of information in this document.
[2023-12-28 13:29] LABS: Glucose Challenge Gest 1H 50g 68 mg/dL (70-140)
== END | disposition home or self-care (01) ==
PROVIDERS: PCP Family Medicine; Referring Provider Obstetrics & Gynecology; Visit Provider Obstetrics & Gynecology
DX: Z34.90 Encounter for supervision of normal pregnancy, unspecified, unspecified trimester (principal)
CPT/HCPCS: 36415; 82950

== ENCOUNTER → 2024-02-23 | Outpatient (CLI) | payer OTHER, SELFPAY | END | disposition home or self-care (01) | LOC: LABSPEC 13:00 | PROVIDERS: PCP Family Medicine; Referring Provider Obstetrics & Gynecology; Visit Provider Obstetrics & Gynecology | DX: Z34.80 Encounter for supervision of other normal pregnancy, unspecified trimester (principal) | CPT/HCPCS: 87081 ==

== ENCOUNTER 2024-03-21 05:36 | Inpatient (IN) | payer OTHER, SELFPAY ==
[2024-03-21] VITALS (29 sets, daily range): BP systolic 99–119; BP diastolic 59–88; PULSE 80–131; RESP 16; TEMP 36.1–37.1; O2SAT 81–100; BMI 26.7
--- NOTE | 2024-03-21 17:08 | HP.PCM.OB_ITS ---
HPI - General General Date of Admission: 03/21/24 HPI Narrative RASHIDA WELLINGTON, is a 29 F who presents IAL reglura ct xno vb lof admits good fm. Maternal Data Information BERNA Calculator Estimated Delivery Date Method Current WG Current Estimate 03/19/24 LMP (Certain) 40w 2d PFSH PFS Medical History (Updated 03/21/24 @ 17:[address] Leonor Garcia MD) Anxiety Anxiety and depression Depression LGSIL (low grade squamous intraepithelial dysplasia) Vaginal delivery Home Medications vitamin#30 30 mg iron-10 mg iron-folic acid 1 mg-omg3 capsule cap PO 12/23/19 [History Last Taken Unknown] famotidine 20 mg tablet (Pepcid) 20 mg PO DAILY #30 tabs 10/13/23 [Rx Last Taken Unknown] Allergy/AdvReac Type Severity Reaction Status Date / Time sulfamethoxazole AdvReac Nausea/Vom/ Verified 03/21/24 05:38 [From Bactrim] Diarrhea trimethoprim [From Bactrim] AdvReac Nausea/Vom/ Verified 03/21/24 05:38 Diarrhea Surgical History History of thyroglossal duct cyst removal S/P ACL surgery Social History adopted: No household members: family number of children: 2 current occupational status: unemployed current occupation: [employer] pets and animals: Yes pets and animals: dog(s) history of recent travel: No sexually active: Yes Smoking Status: Never smoker alcohol intake: never substance use type: does not use caffeine: No what type of physical activity do you participate in: walking seatbelt use: always do you feel safe at home: Yes additional social history: 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 Date Name GA/Weeks Outcome Route Bth Weight Gen Labor Lgth Anesthesia Del Locatn Provider FOB 07/20/20 Jose 39 live - full term 7lb 11oz Male 6 ho urs epidural [facility] Jose Estes 07/31/22 Peggy 40 live - full term Female [facility] Dr. Jose Estes Visit Details Expected Delivery Route/Plan Labor Preferences- CB/BF classes: no labor support person: Franklyn labor intervention preferences: [] pain management options preferred: limited intervention/tub/IA/hliv/pitocin only if needed cut cord/dad catch: yes : yes PP control planned: discussed discussed possible routes of delivery and associated risks: [] special requests: [] Plans Covid status: declined Flu vaccine: declined Tdap vaccine: Rhogam: na LARC form signed: yes movement and labor precautions reviewed. Problem list reviewed and updated with the most current plan of care details and appropriate orders placed. Relevant counseling for the gestational age provided. Continue routine care and follow up unless otherwise noted in visit notes/problem list details OB Flowsheet Initial Weight: Not Recorded Date -?-?-?-?-?-?-?-?-?-?-?-?- EGA Weight BP Urine Prot -?-?-?-?--?-?-?-?-?-?-?-?- Glucose FHR FuHt Pres Dilation -?-?-?-?-?-?-?-?-?-?--?-?- Effaced St Visit Note 08/17/23 -?-?-?-?-?-?-?-?-?-?-?-?- 9w 2d 131 lb 123/83 -?-?-?-?-?-?-?-?-?-?-?-?- 170 -?-?-?-?-?-?-?-?-?-?-?-?- SM- CRL 2.1cm co ns with lmp, small resolving hematoma seen 09/17/23 -?-?-?-?-?-?-?-?-?-?-?--?- 13w 5d 134 lb 4 oz 124/84 Nega tive -?-?-?-?-?-?-?-?-?-?-?-?- Negative 160 -?-?-?-?-?-?-?-?-?-?-?-?- SM- no vb crampi ng feeling better 10/13/23 -?-?-?-?-?-?-?-?-?-?-?-?- 17w 3d 140 lb 2 oz 123/81 Nega tive -?-?-?-?-?-?-?-?-?-?-?-?- Negative 160 -?-?-?-?-?-?-?-?-?-?-?-?- SM- no vb crampi ng SM- no vb cramping moving to new house next week 11/09/23 -?-?-?-?-?-?-?-?-?-?-?-?- 21w 2d 144 lb 8 oz 125/82 Nega tive -?-?-?-?--?-?-?-?-?-?-?-?- Negative 157 20 -?-?-?-?-?-?-?-?-?-?-?-?- JV- normal anato my scan. no complaints. just moved into their new house. baby gender is a surprise! 12/07/23 -?-?-?-?-?-?-?-?-?-?-?-?- 25w 2d 153 lb 6 oz 115/79 Nega tive -?-?-?-?-?-?-?-?-?-?-?-?- Negative 145 25 -?-?-?-?-?-?-?-?-?-?-?-?- LC- no vb/ctx/lo f. 28 week labs ordered. will use Fresh test. 12/28/23 -?-?-?-?-?-?-?-?-?-?-?-?- 28w 2d 156 lb 6 oz 124/82 Nega tive -?-?-?-?-?-?-?-?-?-?-?-?- Negative 152 28 -?-?-?-?-?-?-?-?-?-?-?-?- MH-no VB, LOF. G ood Fm. 28 wk labs pending. Larc 01/11/24 -?-?-?-?-?-?-?-?-?-?-?-?- 30w 2d 158 lb 128/86 Negative -?-?-?-?-?-?-?-?-?-?-?-?- Negative 140 26 -?-?-?-?-?-?-?-?-?-?-?-?- SM- no vb lof go od fm no regular ctx 01/26/24 -?-?-?-?-?-?-?-?-?-?-?-?- 32w 3d 164 lb 141/102 136/93 122/82 -?-?-?-?-?-?-?-?-?-?-?-?- 150 34 -?-?-?-?-?-?-?-?-?-?-?-?- Sm- no vb lof go od fm no regular ctx 02/08/24 -?-?-?-?-?-?-?-?-?-?-?-?- 34w 2d 167 lb 112/77 -?-?-?-?-?-?-?-?-?-?-?-?- 150 35 Cephalic -?-?-?-?-?-?-?--?-?-?-?-?- Sm- no vb lof go od fm no regular ctx 02/23/24 -?-?-?-?-?-?-?-?-?-?-?-?- 36w 3d 170 lb 125/83 Negative -?-?-?-?-?-?-?-?-?-?-?-?- Negative 140 37 Cephalic -?-?-?-?-?-?-?-?-?-?-?-?- SM- no vb lof go od fm nor egaulr ctx gbs today 03/03/24 -?-?-?-?-?-?-?-?-?-?-?-?- 37w 5d 170 lb 114/80 -?-?-?-?-?-?-?-?-?-?-?-?- 140 38 Cephalic -?-?-?-?-?-?-?-?-?-?-?-?- Sm- no vb lof go od fm no regular ctx 03/11/24 -?-?-?-?-?-?-?-?-?--?-?-?- 38w 6d 170 lb 6 oz 126/86 Nega tive -?-?-?-?-?-?-?-?-?-?-?-?- Negative 136 38 Cephalic -?-?-?-?-?-?-?-?-?-?-?-?- JV- patient decl jose pelvic exam. cephalic on bedside scan. labor precautions discussed. 03/17/24 -?-?-?-?-?-?-?-?-?-?-?-?- 39w 5d 172 lb 134/90 126/78 Negative -?-?-?-?-?-?-?-?-?-?-?--?- Negative 135 41 Cephalic -?-?-?-?-?-?-?-?-?-?-?-?- SM- `no vb lof g ood fm no regular ctx discussed exp management NST FHR Rate Baby A Baseline: 140 Variability:: Moderate Accelerations:: 15 x 15 Decelerations:: None NST Reactive:: Yes FHR Category:: Category I Uterine Activity:: q3-5 ROS Constitutional Constitutional: Reports systems reviewed and no addt'l complaints, except as documented ENT HEENT: Reports systems reviewed and no addt'l complaints, except as documented Cardiovascular Cardiovascular: Reports systems reviewed and no addt'l complaints, except as documented Respiratory/Chest Respiratory/Chest: Reports systems reviewed and no addt'l complaints, except as documented Gastrointestinal Gastrointestinal: Reports systems reviewed and no addt'l complaints, except as documented and nausea; Denies abdominal pain Genitourinary Genitourinary: Reports systems reviewed and no addt'l complaints, except as documented, contractions Details: present and frequency (regular ) and m ovement Details: present Musculoskeletal Musculoskeletal: Reports systems reviewed and no addt'l complaints, except as documented Integumentary Integumentary: Reports as per HPI Neurologic Neurologic: Reports systems reviewed and no addt'l complaints, except as documented Endocrine Endocrinology: Reports systems reviewed and no addt'l complaints, except as documented Vital Signs Vital Signs Vital Signs: 03/21/24 05:51 03/21/24 05:51 03/21/24 05:53 Temperature Temperature Source Pulse Rate 120 H 111 H Respiratory Rate Blood Pressure 114/84 H Blood Pressure Mean BP Systolic 114 BP Diastolic 84 Blood Pressure Source Blood Pressure Position Blood Pressure Location Pulse Ox 03/21/24 05:53 03/21/24 05:58 03/21/24 05:58 Temperature Temperature Source Pulse Rate 131 H Respiratory Rate Blood Pressure Blood Pressure Mean BP Systolic BP Diastolic Blood Pressure Source Blood Pressure Position Blood Pressure Location Pulse Ox 98 97 03/21/24 07:25 03/21/24 07:25 03/21/24 07:31 Temperature Temperature Source Pulse Rate 102 H 105 H Respiratory Rate Blood Pressure 119/88 H Blood Pressure Mean BP Systolic 119 BP Diastolic 88 Blood Pressure Source Blood Pressure Position Blood Pressure Location Pulse Ox 03/21/24 07:31 03/21/24 07:36 03/21/24 07:36 Temperature Temperature Source Pulse Rate 96 Respiratory Rate Blood Pressure Blood Pressure Mean BP Systolic BP Diastolic Blood Pressure Source Blood Pressure Position Blood Pressure Location Pulse Ox 99 100 03/21/24 07:40 03/21/24 07:40 03/21/24 07:41 Temperature Temperature Source Pulse Rate 100 98 Respiratory Rate Blood Pressure 109/76 Blood Pressure Mean BP Systolic 109 BP Diastolic 76 Blood Pressure Source Blood Pressure Position Blood Pressure Location Pulse Ox 03/21/24 07:41 03/21/24 07:25 03/21/24 07:25 Temperature Temperature Source Temporal Pulse Rate Respiratory Rate 16 Blood Pressure Blood Pressure Mean BP Systolic BP Diastolic Blood Pressure Source Blood Pressure Position Blood Pressure Location Pulse Ox 100 03/21/24 07:25 03/21/24 07:46 03/21/24 07:46 Temperature 97.6 F L Temperature Source Pulse Rate 99 Respiratory Rate Blood Pressure Blood Pressure Mean BP Systolic BP Diastolic Blood Pressure Source Blood Pressure Position Blood Pressure Location Pulse Ox 100 03/21/24 07:40 03/21/24 07:51 03/21/24 07:51 Temperature Temperature Source Pulse Rate 90 Respiratory Rate 16 Blood Pressure Blood Pressure Mean BP Systolic BP Diastolic Blood Pressure Source Blood Pressure Position Blood Pressure Location Pulse Ox 99 03/21/24 07:55 03/21/24 07:56 03/21/24 07:55 Temperature Temperature Source Pulse Rate 94 94 Respiratory Rate Blood Pressure 115/76 Blood Pressure Mean BP Systolic 115 BP Diastolic 76 Blood Pressure Source Blood Pressure Position Blood Pressure Location Pulse Ox 03/21/24 07:56 03/21/24 08:01 03/21/24 08:01 Temperature Temperature Source Pulse Rate 84 Respiratory Rate Blood Pressure Blood Pressure Mean BP Systolic BP Diastolic Blood Pressure Source Blood Pressure Position Blood Pressure Location Pulse Ox 100 100 03/21/24 08:06 03/21/24 08:06 03/21/24 08:10 Temperature Temperature Source Pulse Rate 92 Respiratory Rate Blood Pressure 115/78 Blood Pressure Mean BP Systolic 115 BP Diastolic 78 Blood Pressure Source Blood Pressure Position Blood Pressure Location Pulse Ox 100 03/21/24 08:10 03/21/24 08:11 03/21/24 08:11 Temperature Temperature Source Pulse Rate 93 93 Respiratory Rate Blood Pressure Blood Pressure Mean BP Systolic BP Diastolic Blood Pressure Source Blood Pressure Position Blood Pressure Location Pulse Ox 100 03/21/24 08:10 03/21/24 07:55 03/21/24 08:16 Temperature Temperature Source Pulse Rate 90 Respiratory Rate 16 16 Blood Pressure Blood Pressure Mean BP Systolic BP Diastolic Blood Pressure Source Blood Pressure Position Blood Pressure Location Pulse Ox 03/21/24 08:16 03/21/24 08:17 03/21/24 08:17 Temperature Temperature Source Pulse Rate 97 Respiratory Rate Blood Pressure Blood Pressure Mean BP Systolic BP Diastolic Blood Pressure Source Blood Pressure Position Blood Pressure Location Pulse Ox 99 81 03/21/24 08:21 03/21/24 08:21 03/21/24 08:25 Temperature Temperature Source Pulse Rate 90 Respiratory Rate Blood Pressure 117/78 Blood Pressure Mean BP Systolic 117 BP Diastolic 78 Blood Pressure Source Blood Pressure Position Blood Pressure Location Pulse Ox 100 03/21/24 08:26 03/21/24 08:25 03/21/24 08:26 Temperature Temperature Source Pulse Rate 89 83 Respiratory Rate Blood Pressure Blood Pressure Mean BP Systolic BP Diastolic Blood Pressure Source Blood Pressure Position Blood Pressure Location Pulse Ox 100 03/21/24 08:25 03/21/24 08:41 03/21/24 08:41 Temperature Temperature Source Pulse Rate 85 Respiratory Rate 16 Blood Pressure 115/59 L Blood Pressure Mean BP Systolic 115 BP Diastolic 59 Blood Pressure Source Blood Pressure Position Blood Pressure Location Pulse Ox 03/21/24 08:40 03/21/24 08:55 03/21/24 08:55 Temperature Temperature Source Pulse Rate 84 Respiratory Rate 16 Blood Pressure 112/75 Blood Pressure Mean BP Systolic 112 BP Diastolic 75 Blood Pressure Source Blood Pressure Position Blood Pressure Location Pulse Ox 03/21/24 08:55 03/21/24 09:10 03/21/24 09:10 Temperature Temperature Source Pulse Rate 83 Respiratory Rate 16 Blood Pressure 108/61 Blood Pressure Mean BP Systolic 108 BP Diastolic 61 Blood Pressure Source Blood Pressure Position Blood Pressure Location Pulse Ox 03/21/24 09:10 03/21/24 09:25 03/21/24 09:25 Temperature Temperature Source Pulse Rate 83 Respiratory Rate 16 Blood Pressure 111/63 Blood Pressure Mean BP Systolic 111 BP Diastolic 63 Blood Pressure Source Blood Pressure Position Blood Pressure Location Pulse Ox 03/21/24 09:25 03/21/24 09:25 03/21/24 09:25 Temperature Temperature Source Temporal Pulse Rate Respiratory Rate 16 Blood Pressure Blood Pressure Mean BP Systolic BP Diastolic Blood Pressure Source Blood Pressure Position Blood Pressure Location Pulse Ox 97 03/21/24 09:25 03/21/24 12:00 03/21/24 16:23 Temperature 98.7 F Temperature Source Temporal Oral Pulse Rate Respiratory Rate Blood Pressure Blood Pressure Mean BP Systolic BP Diastolic Blood Pressure Source Blood Pressure Position Blood Pressure Location Pulse Ox 03/21/24 12:00 03/21/24 16:23 Temperature 97.2 F L 97.0 F L Temperature Source Temporal Oral Pulse Rate 114 H 80 Respiratory Rate 16 16 Blood Pressure 103/78 99/70 Blood Pressure Mean 86 79 BP Systolic BP Diastolic Blood Pressure Source Monitor Monitor Blood Pressure Position Semi-Fowlers Semi-Fowlers Blood Pressure Location Left Arm Left Arm Pulse Ox Weight Weight: 171 lb Body Mass Index (BMI) 26.7 Physical Exam Const alert, oriented x3 and healthy appearing Constitutional Narrative: uncomfortable with contractions HEENT normocephalic and moist oral mucous membranes Head and Scalp: atraumatic Neck full ROM, no lymphadenopathy, supple and thyroid normal General: trachea midline Thyroid: thyroid normal Lymph Lymphatic: no lymphadenopathy noted Chest inspection of chest normal Resp normal respiratory effort Cardio regular rate GI normal to inspection, nondistended, normoactive bowel sounds, soft to palpation and non-tender Inspection: gravid external exam normal Bimanual Exam - Vag & Uterus: uterus non-tender Manual OB Exam: estimated gestational size appropriate, presentation cephalic, dilated, effaced and station Extremity normal to inspection General Extremity: Negative for edema Skin no rashes or lesions noted Neuro deep tendon reflexes 2+ bilaterally Motor Exam: strength 5/5 throughout and clonus absent Psych mental status grossly normal Labs Labs Labs: Blood Type A POSITIVE Antibody Screen NEGATIVE Hct 38.7 % (37-47) Hgb 13.6 g/dL (12.0-15.0) Obstetrics Ultrasound Syphilis Total Ab Non-reactive Rubella IgG Antibody Reactive (Nonreactive) Hep Bs Antigen Non-Reactive (Nonreactive) Hepatitis C Antibody Non-Reactive (Nonreactive) Chlamydia DNA (GIDEON) Negative (Negative) N.gonorrhoeae DNA (GIDEON) Negative (Negative) HIV 1&2 Antibody Non-Reactive (Nonreactive) Glucose 1 Hr 50 gm 68 mg/dL (70-140) L Rhogam given: No Assessment & Plan (1) Active labor at term: (2) Supervision of other normal : COMMENT: PRR BERNA: 03/19/24 surprise PC: Peggy Garcia Spouse: Franklyn (3) : QUALIFIERS: Weeks of gestation: 39 weeks Qualified Code(s): Z3A.39 - 39 weeks gestation of COMMENT: GBS neg, anatomy nl, Declines NIPT, carrier and ntd screening. PLAN: Plan admit IAL supportive care exp managment
--- NOTE | 2024-03-21 18:51 | EX.PCM.OBRPT ---
Assessment & Plan (1) Supervision of other normal : COMMENT: PRR BERNA: 03/19/24 surprise PC: Peggy Garcia Spouse: Franklyn (2) : QUALIFIERS: Weeks of gestation: 39 weeks Qualified Code(s): Z3A.39 - 39 weeks gestation of COMMENT: GBS neg, anatomy nl, Declines NIPT, carrier and ntd screening. (3) Active labor at term: (4) Vaginal delivery: COMMENT: SM IAL 40 boy Shayne Maternal Data Information BERNA Calculator Estimated Delivery Date Method Current WG Current Estimate 03/19/24 LMP (Certain) 40w 2d Vaginal Delivery Operative Information Date of Procedure: 03/21/24 Pre-Operative Diagnosis: see a/p diagnoses Post-Operative Diagnosis: same Surgery / Procedure Performed: Spontaneous Vaginal Delivery Type of Anesthesia: None Special Medications: none Estimated Blood Loss: 100 Fluids Replaced: crystalloid Findings Description of Procedure: Patient began pushing and delivered the head in the WINSOME presentation. The head was delivered atraumatically . The anterior and posterior shoulders delivered without complication followed by the rest of the infant and the was placed on the maternal abdomen. Delayed cord clamping was employed for approximately 60 seconds. Cord was clamped and cut and gentle traction was applied to the cord and the placenta delivered spontaneously immediately following it was noted to be intact with three-vessel cord. The perineum and vagina were inspected and noted to have no significant laceration. EBL was 100 cc. Patient and infant tolerated delivery well. Amniotic Fluid Description: Clear Placental Delivery Description: Spontaneous Placenta Disposition: [facility] Cord Vessel Description: 3 Vessels Cord Entanglement: None Delayed Cord Clamping: Yes Post Vaginal Delivery Medications Given After Delivery: IV Pitocin Episiotomy Description: None Complication Complications: None Procedures Urinary/Genital [id number]: [id number] Vaginal Delivery [facility]
--- NOTE | 2024-03-21 18:54 | DCINST_ITS ---
Discharge Instructions Diet Discharge Diet: No restrictions Activity Discharge Activity: Return to Normal Activity, May Not Drive (while taking narcotic pain medications.) and May Shower May resume sexual activity in: 4-6 weeks Dressing / Incision Call your doctor if your incision/area has: Continuous Slow Oozing, Sudden Increased Bleeding, Increased Pain/ Swelling, Increased Redness and Foul Smelling Discharge Follow Up Care Please Follow Up With: Leonor Garcia MD When: Call [phone] to make an appointment with your doctor in 6 weeks. If you had elevated blood pressure or 4th degree laceration, you will need to be seen in 2 weeks. Test Results: Test results from this visit will be discussed in further detail at your follow- up appointment, if applicable. Discharge Plan Admission Admit Date/Time: 03/21/24 05:36 Attending Provider: Leonor Garcia Primary Care Provider: Amy Wilson Discharge Orders/Prescriptions Prescriptions: No Action vitamin#30 30 mg iron-10 mg iron-folic acid 1 mg-omg3 capsule 30 mg iron-10 mg iron-1 mg capsule PO famotidine [Pepcid] 20 mg tablet 20 mg PO DAILY Qty: 30 6RF Referrals / Follow Up: Amy Wilson MD [Primary Care Provider] - Disposition Disposition (needs filled in before D/C Order can be placed): Home, Self Care
[2024-03-22] VITALS: BP 102/65; PULSE 86; RESP 18; TEMP 37.1; O2SAT 95
[2024-03-22 04:05] VITALS: BP 95/64; PULSE 64; RESP 16; O2SAT 97
--- NOTE | 2024-03-22 08:27 | PCM.PN.OB ---
Subjective Subjective Patient doing well without complaints. Tolerating PO. Ambulating and voiding without difficulty. feeding well. Denies chest pain, shortness of breath, calf pain/swelling, fevers, chills, lightheadedness. Objective Data Objective Data Vital Signs: Vital Signs Temp Pulse Resp BP Pulse Ox O2 Del Method 98.8 F 64 16 95/64 97 Room Air 03/22/24 00:00 03/22/24 04:05 03/22/24 04:05 03/22/24 04:05 03/22/24 04:05 03/22/24 04:05 Oxygen Delivery Method Room Air Weight: 171 lb Body Mass Index (BMI) 26.7 ROS Constitutional Constitutional: Reports systems reviewed and no addt'l complaints, except as documented Cardiovascular Cardiovascular: Reports systems reviewed and no addt'l complaints, except as documented Respiratory/Chest Respiratory/Chest: Reports systems reviewed and no addt'l complaints, except as documented Gastrointestinal Gastrointestinal: Reports systems reviewed and no addt'l complaints, except as documented Physical Exam Const alert, oriented x3 and no apparent distress HEENT Head and Scalp: atraumatic Resp normal respiratory effort GI soft to palpation and non-tender Bimanual Exam - Vag & Uterus: uterus non-tender Uterus Palpation: uterus fundus firm (below Umbilicus) Assessment & Plan (1) Vaginal delivery: COMMENT: SM IAL 40 boy Shayne PLAN: Plan s/p PPD # 1 1. routine post delivery care 2. breast feeding- support given 3. rh positive 4. rubella immune
[2024-03-22 10:00] VITALS: BP 118/61; PULSE 73; RESP 16; TEMP 36.6; O2SAT 96
[2024-03-22 13:45] VITALS: BP 124/85; PULSE 68; RESP 16; TEMP 36.4; O2SAT 98
--- NOTE | 2024-03-28 18:18 | NURSING ---
Completed EBL documentation on delivery record
== END 2024-03-22 13:45 | disposition home or self-care (01) | DRG 807 ==
LOC: WPOUT 05:36 → WP 07:03
PROVIDERS: Admitting Provider Obstetrics & Gynecology; PCP Family Medicine; Referring Provider Obstetrics & Gynecology; Visit Provider Obstetrics & Gynecology
DX: O26.23 Pregnancy care for patient with recurrent pregnancy loss, third trimester (principal); Z37.0 Single live birth; Z3A.39 39 weeks gestation of pregnancy
CPT/HCPCS: 59025; 59050; 99221; J7120; G0378

== ENCOUNTER → 2025-05-09 | Outpatient (CLI) | payer OTHER, SELFPAY ==
[2025-05-09 16:05] LABS: Absolute Lymphocyte Count 2.55 X10^3/uL (0.83-4.51); Absolute Neutrophil Count 11.5 X10^3/uL (2.0-7.7); Basophil# 0.08 X10^3/uL; Basophil% 0.5 % (0-1); Eosinophil# 0.09 X10^3/uL; Eosinophils% 0.6 % (0-5); Hematocrit 42.7 % (37-47); Hemoglobin 14.5 g/dL (12.0-15.0); Lymphocyte # 2.55 X10^3/ul (0.83-4.51); Mean Corpuscular Hgb 31.4 pg (27.0-32.0); Mean Corpuscular Volume 92.4 fL (81-99); Mean Platelet Vol. 10.3 fl (6.2-12.0); Monocyte# 0.71 X10^3/uL; Monocyte% 4.7 % (0-10); NRBC Flagged by Analyzer 0 % (0-5); Neutrophil # 11.51 X10^3/uL (2.7-7.7); Neutrophil % 76.9 % (47-70); Platelet Count 334 K/mm3 (150-450); RBC Distribution Width CV 12.4 % (11.6-14.6); RBC Distribution Width SD 41.8 fl (35.1-43.9); Red Blood Count 4.62 M/mm3 (4.2-5.4)
[2025-05-09 16:46] LABS: HIV Nonreactive (Nonreactive); Hepatitis B Surface Antigen Nonreactive (Nonreactive); Hepatitis C Antibody Nonreactive (Nonreactive); Rubella IgG Nonreactive (Nonreactive); Syphilis Antibodies Nonreactive (Nonreactive)
[2025-05-12 06:07] LABS: Chlamydia By Nucleic Acid AMP Negative (Negative); Gonococcus By Nucleic Acid AMP Negative (Negative)
== END | disposition home or self-care (01) ==
PROVIDERS: Advanced Practice Midwife; PCP Family Medicine; Referring Provider Obstetrics & Gynecology; Visit Provider Obstetrics & Gynecology
DX: Z34.90 Encounter for supervision of normal pregnancy, unspecified, unspecified trimester (principal)
CPT/HCPCS: 36415; 85025; 86703; 86762; 86780; 86803; 86850; 86900; 86901; 87086; 87340; 87491; 87591

== ENCOUNTER → 2025-09-26 | Outpatient (CLI) | payer OTHER, SELFPAY ==
[2025-09-26 16:08] LABS: Hematocrit 34.8 % (37-47); Hemoglobin 12.2 g/dL (12.0-15.0); Immature Granulocytes Count 0.100 X10^3/uL (0.0-0.0); Mean Corp Hgb Conc 35.1 g/dL (32-36); Mean Corpuscular Volume 95.1 fL (81-99); Mean Platelet Vol. 9.5 fl (6.2-12.0); NRBC Flagged by Analyzer 0 % (0-5); Platelet Count 238 K/mm3 (150-450); RBC Distribution Width CV 12.9 % (11.6-14.6); RBC Distribution Width SD 45.1 fl (35.1-43.9); Red Blood Count 3.66 M/mm3 (4.2-5.4); White Blood Count 11.1 K/mm3 (4.4-11.0)
[2025-09-26 17:14] LABS: Glucose Challenge Gest 1H 50g 101 mg/dL (70-140); HIV Nonreactive (Nonreactive); Syphilis Antibodies Nonreactive (Nonreactive)
== END | disposition home or self-care (01) ==
LOC: BWCLAB 14:14
PROVIDERS: Advanced Practice Midwife; PCP Family Medicine; Visit Provider Obstetrics & Gynecology
DX: Z34.81 Encounter for supervision of other normal pregnancy, first trimester (principal); Z13.1 Encounter for screening for diabetes mellitus
CPT/HCPCS: 36415; 82950; 85025; 86703; 86780

== ENCOUNTER → 2025-11-09 | Outpatient (CLI) | payer OTHER, SELFPAY | END | disposition home or self-care (01) | LOC: LABSPEC 15:14 | PROVIDERS: PCP Family Medicine; Referring Provider Obstetrics & Gynecology; Visit Provider Obstetrics & Gynecology | DX: R52 Pain, unspecified (principal) | CPT/HCPCS: 87631 ==

== ENCOUNTER → 2025-11-27 | Outpatient (CLI) | payer OTHER, SELFPAY | END | disposition home or self-care (01) | LOC: LABSPEC 16:09 | PROVIDERS: PCP Family Medicine; Visit Provider Obstetrics & Gynecology | DX: Z34.81 Encounter for supervision of other normal pregnancy, first trimester (principal) | CPT/HCPCS: 87081 ==